=== PATIENT | male | born 1960 | race Caucasian/White ===

== ENCOUNTER 2018-03-25 14:11 | Inpatient (IN) | payer MEDICAID ==
[~2018-03-25] VITALS: Ht 175.3 cm; Wt 81.0 kg
[~2018-03-25 14:11] MED LIST: CEFAZOLIN 1 GM INJ ONE; LIDOCAINE 2% (SDV) 5 ML INJ ONE; PROPOFOL 200 MG INJ ONE; ROCURONIUM 50 MG INJ ONE; SUCCINYLCHOLINE CHLORIDE 100 MG/5 ML SYG IV ONE
[2018-03-25 14:31] VITALS: Ht 175.3 cm; Wt 81.0 kg
[2018-03-25] MEDS ORDERED: SOD CHLORIDE 0.9% 1,000 ML IV STA (16:11)
[2018-03-25] MEDS ORDERED: ONDANSETRON 4 MG INJ IV STA (16:11)
[2018-03-25] MEDS ORDERED: morphine 4 MG/ML VIAL IV STA (16:11)
--- NOTE | 2018-03-25 16:11 | ERD ---
ER Documentation Chief Complaint Chief Complaint LLQ PAIN WITH VOMTING X 3 DAYS, 11/19 HPI 57-year-old male with no significant past medical history presenting with epigastric pain that has worsened over the past few days, significantly worse today. He states that he has had epigastric pain for a few months now. His pain is currently radiating across the upper abdomen, rated at a 9 out of 10. Has associated nonbloody and nonbilious vomiting. He did notice black stools yesterday. No fevers or chills. No chest pain, shortness of breath, cough, dizziness. ROS All systems reviewed and are negative except as per history of present illness. Medications Home Meds No Active Prescriptions or Reported Meds Allergies Allergies: Coded Allergies: No Known Allergy (Unverified , 03/25/18) PMhx/Soc Medical and Surgical Hx: pt denies Medical Hx, pt denies Surgical Hx Hx Psychiatric Problems: No Hx Miscellaneous Medical Probl: No Hx Alcohol Use: Yes (rarely) Hx Substance Use: No Hx Tobacco Use: No Smoking Status: Never smoker FmHx mom had ulcers Physical Exam Vitals Vital Signs Date Temp Pulse Resp B/P (MAP) Pulse Ox O2 O2 Flow FiO2 Time Delivery Rate 03/25/18 99.0 101 16 117/82 95 Room Air 17:00 (94) 03/25/18 106 16 130/102 95 Room Air 16:00 (111) 03/25/18 96.9 110 24 159/102 97 14:31 (121) Physical Exam Const: In distress due to pain, nontoxic Head: Atraumatic Eyes: Normal Conjunctiva ENT: Normal External Ears, Nose and Mouth. Neck: Full range of motion. No meningismus. Resp: Clear to auscultation bilaterally Cardio: Tachycardic with regular rhythm, no murmurs Abd: Significant epigastric tenderness. Abdomen diffusely firm. Negative for lin's or mcburneys point tenderness. non distended. Guarding but no rebound. Normal bowel sounds Skin: No petechiae or rashes Back: No midline or flank tenderness Ext: No cyanosis, or edema Neur: Awake and alert Psych: Normal Mood and Affect Result Diagram: 03/26/18 0510 03/26/18 0510 Results 24 hrs Laboratory Tests Test 03/25/18 16:16 03/25/18 17:38 White Blood Count 12.4 10^3/ul Red Blood Count 5.86 10^6/ul Hemoglobin 17.8 g/dl Hematocrit 52.4 % Mean Corpuscular Volume 89.4 fl Mean Corpuscular Hemoglobin 30.4 pg Mean Corpuscular Hemoglobin Concent 34.0 g/dl Red Cell Distribution Width 11.9 % Platelet Count 435 10^3/UL Mean Platelet Volume 10.0 fl Immature Granulocytes % 0.300 % Neutrophils % 89.6 % Lymphocytes % 5.0 % Monocytes % 4.6 % Eosinophils % 0.0 % Basophils % 0.5 % Nucleated Red Blood Cells % 0.0 /100WBC Immature Granulocytes # 0.040 10^3/ul Neutrophils # 11.1 10^3/ul Lymphocytes # 0.6 10^3/ul Monocytes # 0.6 10^3/ul Eosinophils # 0.0 10^3/ul Basophils # 0.1 10^3/ul Nucleated Red Blood Cells # 0.0 10^3/ul Urine Color ARYA Urine Clarity SLIGHTLY CLOUDY Urine pH 5.0 Urine Specific [place] 1.030 Urine Ketones 1+ mg/dL Urine Nitrite NEGATIVE mg/dL Urine Bilirubin NEGATIVE mg/dL Urine Urobilinogen NEGATIVE mg/dL Urine Leukocyte Esterase NEGATIVE Kyra/ul Urine Microscopic RBC 2 /HPF Urine Microscopic WBC 2 /HPF Urine Squamous Epithelial Cells FEW /HPF Urine Mucus MANY /HPF Urine Hemoglobin NEGATIVE mg/dL Urine Glucose NEGATIVE mg/dL Urine Total Protein 1+ mg/dl Sodium Level 140 mmol/L Potassium Level 3.8 mmol/L Chloride Level 96 mmol/L Carbon Dioxide Level 27 mmol/L Anion Gap 17 Blood Urea Nitrogen 24 mg/dl Creatinine 1.71 mg/dl Est Glomerular Filtrat Rate mL/min 41 mL/min Glucose Level 177 mg/dl Calcium Level 9.6 mg/dl Total Bilirubin 0.7 mg/dl Direct Bilirubin 0.00 mg/dl Indirect Bilirubin 0.7 mg/dl Aspartate Amino Transf (AST/SGOT) 23 IU/L Alanine Aminotransferase (ALT/SGPT) 16 IU/L Alkaline Phosphatase 98 IU/L Troponin I < 0.012 ng/ml Total Protein 8.4 g/dl Albumin 4.6 g/dl Globulin 3.80 g/dl Albumin/Globulin Ratio 1.21 Lipase 63 U/L POC Venous Lactate 2.4 mmol/L Current Medications Medications Dose Sig/Sveta Start Time Status Last (Trade) Ordered Route PRN Stop Time Admin Dose Reason Admin Sodium 1,000 ml @ Q1H STAT 03/25/18 DC 03/25/18 Chloride 1,000 mls/hr IV 16:11 16:37 03/25/18 17:10 Morphine 4 mg ONCE STAT 03/25/18 DC 03/25/18 Sulfate IV 16:11 16:37 (morphine) 03/25/18 16:13 Ondansetron 4 mg ONCE STAT 03/25/18 DC 03/25/18 HCl (Zofran IV 16:11 16:37 Inj) 03/25/18 16:13 40 mg ONCE ONCE 03/25/18 DC 03/25/18 Pantoprazole IV 16:30 16:37 (Protonix 03/25/18 16:31 Iv) Sodium 1,290 ml BOLUS OVER 2 03/25/18 DC 03/25/18 Chloride HOURS STAT 17:12 18:14 (NS) IV* 03/25/18 17:16 Piperacillin 100 ml @ ONCE STAT 03/25/18 DC 03/25/18 Sod/ 200 mls/hr IVPB 17:12 18:12 Tazobactam 03/25/18 17:41 Sod 100 ml @ ONCE STAT 03/25/18 DC 03/25/18 Metronidazole 100 mls/hr IVPB 17:12 18:57 03/25/18 18:11 0.5 mg ONCE STAT 03/25/18 DC 03/25/18 Hydromorphone IV 17:23 18:13 HCl 03/25/18 17:25 (Dilaudid) Procedures/MDM EMERGENT LABS AND DIAGNOSTIC STUDIES: Lab Results above were reviewed and interpreted by me. CBC: Mild leukocytosis, concerning for infection CMP: Elevated BUN and creatinine, consistent with renal insufficiency. No evidence of electrolyte abnormality, hypoglycemia, liver failure, or biliary obstruction Lipase: no evidence of pancreatitis Troponin within normal limits, not indicative of cardiac ischemia Lactate elevated, consistent with tissue hypoperfusion or sepsis UA: no evidence of infection. Ketones noted 12-lead EKG was interpreted by Abraham Cuellar MD: Sinus tachycardia at 102 bpm Normal axis Normal intervals No acute ST or T wave changes suggestive of acute ischemia or STEMI. EKG #2: Rate/Rhythm: Sinus tachycardia at 112 bpm QRS, ST, T-waves: No changes consistent w/ acute ischemia Impression: No evidence of ischemia or arrhythmia Radiology Results as interpreted by Radiology below were reviewed by Paddy Cuellar MD: Chest x-ray shows no acute intrathoracic abnormalities, but free air was noted under the diaphragm IMPRESSION: 1. Extensive pneumoperitoneum seen in the upper abdomen. The source of pneumoperitoneum is unclear, most likely from stomach or proximal small bowel. 2. Moderate to severely distended stomach with air fluid level. Nonspecific diffuse circumferential thickening of the antrum and proximal duodenum. 3. Circumferential wall thickening of the proximal loops of small bowel with adjacent fat stranding suggestive of enteritis. 4. Small to moderate perihepatic ascites extending to the pelvis. Initial Nursing notes reviewed. Previous Medical Records requested via the Electronic Health Record. EMERGENCY DEPARTMENT COURSE / MEDICAL DECISION MAKING: Patient presents with abdominal pain. Vitals were notable for tachycardia and tachypnea upon arrival. However there was no clear source of infection. Initially I suspected possible peptic ulcer, gastritis versus pancreatitis. I have a low suspicion for cholecystitis. Workup showed evidence of pneumoperitoneum, with concern for proximal bowel perforation. When this was recognized, septic workup was initiated, broad-spectrum antibiotics given and full bolus of IV fluids given. Patient was treated with Protonix IV as well as antibiotics. I spoke with the general surgeon on-call, Dr. Koo, who plans on taking the patient to surgery. As patient's infectious symptoms have not stabilized and the patient is at risk of rapid decompensation. The patient will be admitted for careful hydration, antibiotic therapy, and infectious source control. Time of Sepsis Recognition: 1712 Severe Sepsis Assessment: Infectious Source: Peritonitis End organ damage indicated by: Lactate > 2.0 mmol/L Severe Sepsis Managment: Blood Cultures X 2 before broad spectrum antibiotics initiated within 3 hours of recognition. 30 ml/kg NS bolus Completed Initial Lactate: 2.4 Repeat Lactate 3.1 Critical Care: Time: 45 minutes Treatments/Evaluations: Emergent fluid management, while maintaining close respiratory support. Immediate broad spectrum antibiotic therapy. Simultaneous assessment for possible sources in order to direct therapy. Consideration for invasive and chemical support to prevent respiratory or cardiac collapse. Septic Shock Assessment (1 hour post 30 ml/kg fluid bolus): Hypotension (SBP < 90 or 40 mmHg drop, MAP < 65): No Lactic acid > 4.0 No Accepting Care Team: Current data and ongoing care discussed. Time: Time of admission Primary Provider: Dr. Bazzi Consulting: Dr. Koo, general surgery Outstanding Data: Blood and urine cultures Departure Diagnosis: Primary Impression: Pneumoperitoneum Additional Impressions: Severe sepsis Acute kidney failure Acute renal failure type: unspecified Qualified Codes: N17.9 - Acute kidney failure, unspecified Condition: Critical LESLEE CUELLAR MD Mar 25, 2018 16:11
[2018-03-25] MEDS ORDERED: PANTOPRAZOLE 40 MG INJ IV ONE (16:30)
[2018-03-25] MEDS ORDERED: SODIUM CHLORIDE 0.9% 1L BAG IV* STA (17:12)
[2018-03-25] MEDS ORDERED: metroNIDAZOLE 500 MG/NS (PMX) 100 ML IVPB STA (17:12)
[2018-03-25] MEDS ORDERED: PIPER-TAZO 3.375 GM IV (PMX) 100 ML IVPB STA (17:12)
[2018-03-25] MEDS ORDERED: HYDROmorphONE 0.5 MG/0.5 ML SYG IV STA (17:23)
[2018-03-25] MEDS ORDERED: ONDANSETRON 4 MG INJ IV PRN ×4 (19:30→23:00)
[2018-03-25] MEDS ORDERED: LIDOCAINE 2% VISC 15 ML CUP TOP ONE (19:30)
[2018-03-25] MEDS ORDERED: ACETAMINOPHEN 325 MG TAB PO PRN (19:30)
[2018-03-25] MEDS ORDERED: BUPIVACAINE 0.25% (MPF) 30 ML INJ ONE (19:35)
[2018-03-25] MEDS ORDERED: NACL 0.9% 3 ML SYG IV SCH (20:00)
--- NOTE | 2018-03-25 20:04 | PREAC ---
Date/Time of Note Date/Time of Note DATE: 03/25/18 TIME: 20:03 Anesthesia Eval and Record Evaluation Time Pre-Procedure Interview DATE: 03/25/18 TIME: 20:03 Age 57 Sex male NPO: 8 hrs Preoperative diagnosis pneumoperitonium Planned procedure exploratory laparoscopy Past Medical History Past Medical History: None (Pt does not see a physician) Surgery & Anesthesia Issues No known issue Meds Anticoagulation: No Beta Isha within 24 hr: No Reason Beta Isha not given: Pt. not on B-Isha No Active Prescriptions or Reported Meds Current Medications Ondansetron HCl (Zofran Inj) 4 mg ER BRIDGE PRN IV NAUSEA/VOMITING; Start 03/25/18 at 19:30; Stop 03/26/18 at 19:29 Acetaminophen (Tylenol Tab) 650 mg ER BRIDGE PRN PO .MILD PAIN 1-3 OR TEMP; Start 03/25/18 at 19:30; Stop 03/26/18 at 19:29 Pantoprazole 80 mg/Sodium Chloride 100 ml @ 400 mls/hr ONCE ONCE IVPB ; Start 03/25/18 at 20:00; Stop 03/25/18 at 20:14; Status UNV Pantoprazole 80 mg/Sodium Chloride 100 ml @ 10 mls/hr Q10H IV ; Start 03/25/18 at 20:00; Status UNV Piperacillin Sod/ Tazobactam Sod 100 ml @ 200 mls/hr Q6 IVPB ; Start 03/26/18 at 00:00; Status UNV Sodium Chloride 1,000 ml @ 100 mls/hr Q10H IV ; Start 03/25/18 at 19:56; Status UNV IV Flush (NS 3 ml) 3 ml PER PROTOCOL IV ; Start 03/25/18 at 20:00; Status UNV Ondansetron HCl (Zofran Inj) 4 mg Q6H PRN IV NAUSEA/VOMITING; Start 03/25/18 at 20:00; Status UNV Morphine Sulfate (morphine) 2 mg Q4H PRN IV .PAIN 7-10; Start 03/25/18 at 20:00; Status UNV Meds reviewed: Yes Allergies Coded Allergies: No Known Allergy (Unverified , 03/25/18) Allergies Reviewed: Yes Labs/Studies Labs Reviewed: Reviewed by anesthesiologist Result Diagram: 03/25/18 1616 03/25/18 1616 Laboratory Tests 03/25/18 16:16 test: Negative Studies: ECG Pre-procedure Exam Last vitals Vital Signs Date Temp Pulse Resp B/P (MAP) Pulse Ox O2 O2 Flow FiO2 Time Delivery Rate 03/25/18 110 22 115/82 95 Room Air 19:56 (93) 03/25/18 99.0 17:00 Airway: Adequate mouth opening, Adequate thyromental dist Mallampati: Mallampati II Teeth: Normal Lung: Normal Heart: Normal ASA Physical Status ASA physical status: 3 Emergency: E Planned Anesthetic General/MAC: ETT Nerve block: TAP (bilateral) Pre-operative Attestations Prior to commencing anesthesia and surgery, the patient was re-evaluated, there was verification of: *The patient's identity *The results of appropriate recent lab work and preoperative vital signs *The above evaluation not changing prior to induction *Anesthetic plan, risk benefits, alternative and complications discussed with patient/family; questions answered; patient/family understands, accepts and wishes to proceed. ANUJ SOTO Mar 25, 2018 20:04
--- NOTE | 2018-03-25 20:09 | CONS ---
Consultation Date/Type/Reason Admit Date/Time Date of Consultation: Mar 25, 2018 Type of Consult surgical consult Reason for Consultation abdominal pain , perforated viscus Date/Time of Note DATE: 03/25/18 TIME: 20:06 Hx of Present Illness Patient 57-year-old male presenting to the emergency room with abdominal pain which increase acutely today. Patient states that he has had upper abdominal pain for the past few months he has a family history of ulcers in his mother side. He denies any past medical history denies any past surgical history. Patient noted epigastric pain and vomiting and some dark stool. Presentation to the emergency room he was noted to have severe upper abdominal pain and CAT scan with pneumoperitoneum with fluid without evidence of diverticulitis possible perforated ulcer. Constitutional: no complaints, improved, chills, diaphoresis, disoriented, febrile, poor po, requiring IVF, requiring O2, other (pain) Gastrointestinal: pain Past Medical History Medical History: no pertinent history Home Meds No Active Prescriptions or Reported Meds Medications Current Medications Ondansetron HCl (Zofran Inj) 4 mg ER BRIDGE PRN IV NAUSEA/VOMITING; Start 03/25/18 at 19:30; Stop 03/26/18 at 19:29 Acetaminophen (Tylenol Tab) 650 mg ER BRIDGE PRN PO .MILD PAIN 1-3 OR TEMP; Start 03/25/18 at 19:30; Stop 03/26/18 at 19:29 Pantoprazole 80 mg/Sodium Chloride 100 ml @ 400 mls/hr ONCE ONCE IVPB ; Start 03/25/18 at 20:00; Stop 03/25/18 at 20:14; Status UNV Pantoprazole 80 mg/Sodium Chloride 100 ml @ 10 mls/hr Q10H IV ; Start 03/25/18 at 20:00; Status UNV Piperacillin Sod/ Tazobactam Sod 100 ml @ 200 mls/hr Q6 IVPB ; Start 03/26/18 at 00:00; Status UNV Sodium Chloride 1,000 ml @ 100 mls/hr Q10H IV ; Start 03/25/18 at 19:56; Status UNV IV Flush (NS 3 ml) 3 ml PER PROTOCOL IV ; Start 03/25/18 at 20:00; Status UNV Ondansetron HCl (Zofran Inj) 4 mg Q6H PRN IV NAUSEA/VOMITING; Start 03/25/18 at 20:00; Status UNV Morphine Sulfate (morphine) 2 mg Q4H PRN IV .PAIN 7-10; Start 03/25/18 at 20:00; Status UNV Allergies: Coded Allergies: No Known Allergy (Unverified , 03/25/18) Social History Smoking Status: Never smoker Exam/Review of Systems Exam Vitals Vital Signs Date Temp Pulse Resp B/P (MAP) Pulse Ox O2 O2 Flow FiO2 Time Delivery Rate 03/25/18 110 22 115/82 95 Room Air 19:56 (93) 03/25/18 99.0 17:00 Gastrointestinal: tender Results Result Diagram: 03/25/18 1616 03/25/18 1616 Results 24hrs Laboratory Tests Test 03/25/18 16:16 03/25/18 17:38 White Blood Count 12.4 H Red Blood Count 5.86 Hemoglobin 17.8 Hematocrit 52.4 H Mean Corpuscular Volume 89.4 Mean Corpuscular Hemoglobin 30.4 Mean Corpuscular Hemoglobin Concent 34.0 Red Cell Distribution Width 11.9 Platelet Count 435 H Mean Platelet Volume 10.0 Immature Granulocytes % 0.300 Neutrophils % 89.6 H Lymphocytes % 5.0 L Monocytes % 4.6 Eosinophils % 0.0 Basophils % 0.5 Nucleated Red Blood Cells % 0.0 Immature Granulocytes # 0.040 H Neutrophils # 11.1 H Lymphocytes # 0.6 L Monocytes # 0.6 Eosinophils # 0.0 Basophils # 0.1 Nucleated Red Blood Cells # 0.0 Urine Color ARYA Urine Clarity SLIGHTLY CLOUDY A Urine pH 5.0 Urine Specific [place] 1.030 Urine Ketones 1+ H Urine Nitrite NEGATIVE Urine Bilirubin NEGATIVE Urine Urobilinogen NEGATIVE Urine Leukocyte Esterase NEGATIVE Urine Microscopic RBC 2 Urine Microscopic WBC 2 Urine Squamous Epithelial Cells FEW Urine Mucus MANY A Urine Hemoglobin NEGATIVE Urine Glucose NEGATIVE Urine Total Protein 1+ H Sodium Level 140 Potassium Level 3.8 Chloride Level 96 L Carbon Dioxide Level 27 Anion Gap 17 H Blood Urea Nitrogen 24 H Creatinine 1.71 H Est Glomerular Filtrat Rate mL/min 41 L Glucose Level 177 Calcium Level 9.6 Total Bilirubin 0.7 Direct Bilirubin 0.00 Indirect Bilirubin 0.7 Aspartate Amino Transf (AST/SGOT) 23 Alanine Aminotransferase (ALT/SGPT) 16 Alkaline Phosphatase 98 Total Protein 8.4 H Albumin 4.6 Globulin 3.80 H Albumin/Globulin Ratio 1.21 Lipase 63 POC Venous Lactate 2.4 *H Medications Medication Current Medications Ondansetron HCl (Zofran Inj) 4 mg ER BRIDGE PRN IV NAUSEA/VOMITING; Start 03/25/18 at 19:30; Stop 03/26/18 at 19:29 Acetaminophen (Tylenol Tab) 650 mg ER BRIDGE PRN PO .MILD PAIN 1-3 OR TEMP; Start 03/25/18 at 19:30; Stop 03/26/18 at 19:29 Pantoprazole 80 mg/Sodium Chloride 100 ml @ 400 mls/hr ONCE ONCE IVPB ; Start 03/25/18 at 20:00; Stop 03/25/18 at 20:14; Status UNV Pantoprazole 80 mg/Sodium Chloride 100 ml @ 10 mls/hr Q10H IV ; Start 03/25/18 at 20:00; Status UNV Piperacillin Sod/ Tazobactam Sod 100 ml @ 200 mls/hr Q6 IVPB ; Start 03/26/18 at 00:00; Status UNV Sodium Chloride 1,000 ml @ 100 mls/hr Q10H IV ; Start 03/25/18 at 19:56; Status UNV IV Flush (NS 3 ml) 3 ml PER PROTOCOL IV ; Start 03/25/18 at 20:00; Status UNV Ondansetron HCl (Zofran Inj) 4 mg Q6H PRN IV NAUSEA/VOMITING; Start 03/25/18 at 20:00; Status UNV Morphine Sulfate (morphine) 2 mg Q4H PRN IV .PAIN 7-10; Start 03/25/18 at 20:00; Status UNV KINGS PIERRE MD Mar 25, 2018 20:09
[2018-03-25] MEDS ORDERED: ROPIVACAINE 0.5 % 30 ML VIAL ONE (20:21)
[2018-03-25] MEDS ORDERED: FENTAnyl 50 MCG/ML VIAL ONE (20:21)
[2018-03-25] MEDS ORDERED: FENTAnyl 50 MCG/ML VIAL IV PRN ×3 (20:30)
[2018-03-25] MEDS ORDERED: MEPERIDINE 25 MG INJ IV PRN (20:30)
[2018-03-25] MEDS ORDERED: HYDROmorphONE 1 MG/5 ML IV SYRINGE IV PRN ×3 (20:30)
[2018-03-25] MEDS ORDERED: METOCLOPRAMIDE 10 MG INJ IV PRN (20:30)
[2018-03-25] MEDS ORDERED: ALBUTEROL 0.083% (NEB) 2.5 MG/3 ML AMP HHN PRN (20:30)
[2018-03-25] MEDS ORDERED: DIPHENHYDRAMINE 50 MG INJ IV PRN ×2 (20:30→23:00)
[2018-03-25] MEDS ORDERED: PHENYLephrine (100 MCG/ML) 5ML SYG ONE ×2 (20:45→20:50)
--- NOTE | 2018-03-25 20:45 | HP ---
Date/Time of Note Date/Time of Note DATE: 03/25/18 TIME: 20:45 Assessment/Plan VTE Prophylaxis Pharmacological prophylaxis: other Lines/Catheters IV Catheter Type (from Nrs): Saline Lock Assessment/Plan Hospital Course Objective Physical exam General: Patient is laying in bed and answers questions appropriately Mentation: Patient is alert and oriented 4, Head: Normocephalic atraumatic Eyes: EOMI, pupils reactive to light Neck: Supple, nontender, midline Respiratory: Clear to auscultation bilaterally Cardiovascular: regular rate, no obvious murmurs Gastrointestinal: Tender to palpation, bowel sounds heard. Neurological: Moves all extremities spontaneously Skin: No new skin lesions Assessment and plan Perforated viscus with abdominal pain -Per CT, likely stomach or proximal small bowel -General surgeon on board, going into surgery as we speak -Prophylactic IV antibiotic -Normal saline Melena -IV Protonix PPI drip -Very likely secondary to above perforated viscus -Day team to consult GI if needed Acute kidney injury versus chronic kidney disease -Patient does not follow-up with a physician on a normal basis so unknown baseline -NS -Day team to consult nephrology if needed Nausea vomiting -Secondary to above perforated viscus -Treat with NG tube and Zofran -Surgical repair today of viscus Disposition -Pending surgery, continue PPI drip for now and IV antibiotics for now. Result Diagram: 03/25/18 1616 03/25/18 1616 Results 24hrs Laboratory Tests Test 03/25/18 16:16 03/25/18 17:38 White Blood Count 12.4 H Red Blood Count 5.86 Hemoglobin 17.8 Hematocrit 52.4 H Mean Corpuscular Volume 89.4 Mean Corpuscular Hemoglobin 30.4 Mean Corpuscular Hemoglobin Concent 34.0 Red Cell Distribution Width 11.9 Platelet Count 435 H Mean Platelet Volume 10.0 Immature Granulocytes % 0.300 Neutrophils % 89.6 H Lymphocytes % 5.0 L Monocytes % 4.6 Eosinophils % 0.0 Basophils % 0.5 Nucleated Red Blood Cells % 0.0 Immature Granulocytes # 0.040 H Neutrophils # 11.1 H Lymphocytes # 0.6 L Monocytes # 0.6 Eosinophils # 0.0 Basophils # 0.1 Nucleated Red Blood Cells # 0.0 Urine Color ARYA Urine Clarity SLIGHTLY CLOUDY A Urine pH 5.0 Urine Specific [place] 1.030 Urine Ketones 1+ H Urine Nitrite NEGATIVE Urine Bilirubin NEGATIVE Urine Urobilinogen NEGATIVE Urine Leukocyte Esterase NEGATIVE Urine Microscopic RBC 2 Urine Microscopic WBC 2 Urine Squamous Epithelial Cells FEW Urine Mucus MANY A Urine Hemoglobin NEGATIVE Urine Glucose NEGATIVE Urine Total Protein 1+ H Sodium Level 140 Potassium Level 3.8 Chloride Level 96 L Carbon Dioxide Level 27 Anion Gap 17 H Blood Urea Nitrogen 24 H Creatinine 1.71 H Est Glomerular Filtrat Rate mL/min 41 L Glucose Level 177 Calcium Level 9.6 Total Bilirubin 0.7 Direct Bilirubin 0.00 Indirect Bilirubin 0.7 Aspartate Amino Transf (AST/SGOT) 23 Alanine Aminotransferase (ALT/SGPT) 16 Alkaline Phosphatase 98 Troponin I < 0.012 Total Protein 8.4 H Albumin 4.6 Globulin 3.80 H Albumin/Globulin Ratio 1.21 Lipase 63 POC Venous Lactate 2.4 *H HPI/ROS Admit Date/Time Admit Date/Time Hx of Present Illness Patient is a male with no significant past medical history due to not f ollowing up with a physician in a very long time who presents to [facility] for abdominal pain. Patient states that he had on and off abdominal pain for quite some time however the most severe abdominal pain has been going on for the past 2 days in the epigastric region and he is also complaining of black stool for the past day. Patient currently has abdominal pain but has subsided with pain medication. Patient now has an NG tube but has also been complaining of nausea and vomiting on and off but with no hematemesis. Patient denies chest pain, shortness of breath, headache, leg pain, chest pain PMH/Family/Social Past Medical History Medical History: no pertinent history Medications Current Medications Ondansetron HCl (Zofran Inj) 4 mg ER BRIDGE PRN IV NAUSEA/VOMITING; Start 03/25 at 19:30; Stop 03/26/18 at 19:29 Acetaminophen (Tylenol Tab) 650 mg ER BRIDGE PRN PO .MILD PAIN 1-3 OR TEMP; Start 03/25/18 at 19:30; Stop 03/26/18 at 19:29 Pantoprazole 80 mg/Sodium Chloride 100 ml @ 400 mls/hr ONCE ONCE IVPB ; Start 03/25/18 at 20:00; Stop 03/25/18 at 20:14; Status UNV Pantoprazole 80 mg/Sodium Chloride 100 ml @ 10 mls/hr Q10H IV ; Start 03/25/18 at 20:00; Status UNV Piperacillin Sod/ Tazobactam Sod 100 ml @ 200 mls/hr Q6 IVPB ; Start 03/26/18 at 00:00 Sodium Chloride 1,000 ml @ 100 mls/hr Q10H IV ; Start 03/25/18 at 19:56 IV Flush (NS 3 ml) 3 ml PER PROTOCOL IV ; Start 03/25/18 at 20:00 Ondansetron HCl (Zofran Inj) 4 mg Q6H PRN IV NAUSEA/VOMITING; Start 03/25/18 at 20:00 Morphine Sulfate (morphine) 2 mg Q4H PRN IV .PAIN 7-10; Start 03/25/18 at 20:00 Hydromorphone HCl (Dilaudid) 0.2 mg PACU PRN IV MILD PAIN 1-3; Start 03/25/18 at 20:30; Stop 03/26/18 at 03:00 Hydromorphone HCl (Dilaudid) 0.4 mg PACU PRN IV MOD PAIN 4-6; Start 03/25/18 at 20:30; Stop 03/26/18 at 03:00 Hydromorphone HCl (Dilaudid) 0.6 mg PACU PRN IV SEVERE PAIN 7-10; Start 03/25/18 at 20:30; Stop 03/26/18 at 03:00 Fentanyl (Sublimaze) 25 mcg PACU ORDER PRN IV MILD PAIN 1-3; Start 03/25/18 at 20:30; Stop 03/26/18 at 03:00 Fentanyl (Sublimaze) 50 mcg PACU ORDER PRN IV MOD PAIN 4-6; Start 03/25/18 at 20:30; Stop 03/26/18 at 03:00 Fentanyl (Sublimaze) 75 mcg PACU ORDER PRN IV SEVERE PAIN 7-10; Start 03/25/18 at 20:30; Stop 03/26/18 at 03:00 Ondansetron HCl (Zofran Inj) 4 mg PACU ORDER PRN IV NAUSEA/VOMITING; Start 03/25/18 at 20:30 Metoclopramide HCl (Reglan) 10 mg PACU ORDER PRN IV NAUSEA/VOMITING; Start 03/25/18 at 20:30; Stop 03/26/18 at 03:00 Albuterol (Proventil 0.083% (Neb)) 2.5 mg PACU ORDER PRN HHN .WHEEZING; Start 03/25/18 at 20:30; Stop 03/26/18 at 03:00 Meperidine HCl (Demerol) 25 mg PACU ORDER PRN IV .RIGORS; Start 03/25/18 at 20:30; Stop 03/26/18 at 03:00 Diphenhydramine HCl (Benadryl) 25 mg PACU ORDER PRN IV .PRURITUS; Start 03/25/18 at 20:30; Stop 03/26/18 at 03:00 Coded Allergies: No Known Allergy (Unverified , 03/25/18) Social History Smoking Status: Never smoker Exam/Review of Systems Vital Signs Vitals Vital Signs Date Temp Pulse Resp B/P (MAP) Pulse Ox O2 O2 Flow FiO2 Time Delivery Rate 03/25/18 110 22 115/82 95 Room Air 19:56 (93) 03/25/18 99.0 17:00 TARA DUGGAN Mar 25, 2018 20:45
[2018-03-25] MEDS ORDERED: VASOPRESSIN 20 UNITS INJ ONE (20:49)
[2018-03-25] MEDS ORDERED: MIDAZOLAM 1 MG/ML 2 ML INJ ONE (20:56)
[2018-03-25] MEDS ORDERED: PANTOPRAZOLE IV 80 MG in SOD CHLORIDE 0.9% 100 ML IVPB ONE (21:00)
[2018-03-25] MEDS ORDERED: D5W-0.45 NACL + KCL 20 MEQ 1,000 ML IV SCH (22:57)
[2018-03-25] MEDS ORDERED: HYDROmorphONE 0.5 MG/0.5 ML SYG IV PRN (23:00)
[2018-03-25 23:15] VITALS: BP 167/100; PULSE 94; RESP 15
[2018-03-25 23:30] VITALS: BP 175/105; PULSE 100; RESP 15
[2018-03-25] MEDS ORDERED: PROPOFOL 100 ML IV ONE (23:30)
[2018-03-25 23:45] VITALS: BP 182/118; PULSE 96; RESP 20
[2018-03-26] VITALS (41 sets, daily range): BP systolic 84–173; BP diastolic 60–120; PULSE 87–104; RESP 14–32
[2018-03-26] MEDS ORDERED: PIPER-TAZO 3.375 GM IV (PMX) 100 ML IVPB SCH
[2018-03-26] MEDS: SOD CHLORIDE 0.9% 1,000 ML IV SCH ×3 (00:07→15:45)
--- NOTE | 2018-03-26 00:14 | OPR ---
Date/Time of Note Date/Time of Note DATE: 03/26/18 TIME: 00:13 Operative Report Procedure Date: Mar 25, 2018 Preoperative Diagnosis Pneumoperitoneum suspect perforated ulcer Postoperative Diagnosis Perforated peptic ulcer Operation/Procedure Performed Scopic repair of perforated peptic ulcer Surgeon Kings Koo see signature line [place] Gatherer None Anesthesia Type: general Anesthesiologist: ANUJ SOTO Estimated Blood Loss: minimal Transfusion none Specimen None Grafts/Implants none Complications none Pt Condition Post Procedure: stable Disposition: other (ICU) Indications Patient presented with severe abdominal pain 3 days duration on CAT scan noted to have significant amount of pneumoperitoneum with suggestion of possible perforation in the upper abdomen possible peptic ulcer. I saw patient in consultation and felt that the patient likely had a perforated peptic ulcer I recommended urgent exploration by laparoscopy although possibility of colostomy possibly of other findings if perforation else from the GI tract would necessitate an patient agreed to proceed. Procedure Description Patient brought to the operating placed supine position general she is administered with intubation patient prepped draped in sterile fashion timeout was completed in standard. Patel catheter was inserted. Varies needle was used in the left upper quadrant Verduzco's point insufflation delivered to maintain pneumoperitoneum at 15 mmHg throughout the procedure course of Marcaine was used to infiltrate all trocar sites a small stab incision made to the left periumbilical space and a 5 mm trocar was inserted with a 35 degree laparoscope the Veress needle was removed and 2 additional trochars in the right lateral abdomen. Inspection of the abdomen showed gross peritonitis with significant amount of intraperitoneal fluid which was likely gastric content. Copious irrigation was used to dilute this and then aspirated until all 4 quadrants showed clear of any gross contamination. The maximum point of information appeared to be in the prepyloric area just underlying the falciform ligament there was contamination along the abutting portion of the liver. 2 interrupted 2-0 Vicryl and 3-0 silk sutures were placed on either side of the perforation and tied loosely with long tails. A tongue of omentum was then easily brought up over this and this was tied down. Additional larger piece of omentum was freely mobile and brought over this and this was secured in place by a suture by the falciform ligament. Final inspection of all 4 quadrants showed no other gross contamination there was additional irrigation used and aspirated until clear. Under direct visualization after the insufflation was halted all trochars were removed. The skin incisions closed with 4-0 Monocryl and Dermabond for dressing. Patient was kept intubated because of feeling that there was still residual content in the stomach which cannot be aspirated through the NG tube. [place] safest to keep patient intubated overnight. Counts were correct x2. KINGS OKO MD Mar 26, 2018 00:14
[2018-03-26] MEDS: PIPER-TAZO 3.375 GM IV (PMX) 100 ML IVPB SCH ×4 (00:20→18:12)
[2018-03-26] MEDS: PANTOPRAZOLE IV 80 MG in SOD CHLORIDE 0.9% 100 ML IV SCH ×4 (01:37→22:31)
[2018-03-26] MEDS: PROPOFOL 100 ML IV SCH ×3 (03:04→14:30)
[2018-03-26] MEDS: morphine 2 MG INJ IV PRN ×2 (04:01→09:53)
[2018-03-26] MEDS: FAMOTIDINE 20 MG INJ IV SCH ×2 (08:29→20:44)
--- NOTE | 2018-03-26 08:51 | PAC ---
Date/Time of Note Date/Time of Note DATE: 03/26/18 TIME: 08:50 Post-Anesthesia Notes Post-Anesthesia Note Last documented vital signs Vital Signs Date Temp Pulse Resp B/P (MAP) Pulse Ox O2 O2 Flow FiO2 Time Delivery Rate 03/26/18 99.3 96 21 117/83 100 Mechanical 08:00 (94) Ventilator 03/26/18 60 04:02 Activity: WNL Respiratory function: WNL Cardiovascular function: WNL Mental status: Baseline Pain reasonably controlled: Yes Hydration appropriate: Yes Nausea/Vomiting absent: Yes ANUJ SOTO Mar 26, 2018 08:51
--- NOTE | 2018-03-26 09:09 | PN ---
Date/Time of Note Date/Time of Note DATE: 03/26/18 TIME: 09:01 Assessment/Plan VTE Prophylaxis SCD applied (from Nsg): Yes SCD contraindicated: other Pharmacological prophylaxis: NA/contraindicated Pharm contraindication: bleeding Lines/Catheters IV Catheter Type (from Nrsg): Peripheral IV Urinary Cath still in place: Yes Reason Cath still needed: urinary retention Assessment/Plan Hospital Course S: Patient had surgical repair of perforated viscus early this morning. Presently intubated, NG tube in place. Does open eyes, no acute events overnight. Objective VS - see below Physical exam General: Lying in bed, intubated, but opens eyes, NG tube in place Head: Normocephalic atraumatic Eyes: EOMI, pupils reactive to light Neck: Supple, nontender, midline Respiratory: Clear to auscultation bilaterally Cardiovascular: regular rate, no obvious murmurs Gastrointestinal: Nondistended, soft, surgical incisions covered in bandage. Neurological: No apparent focal deficit Date/Time of Note Date/Time of Note DATE: 03/26/18 TIME: 00:13 Operative Report Procedure Date: Mar 25, 2018 Preoperative Diagnosis Pneumoperitoneum suspect perforated ulcer Postoperative Diagnosis Perforated peptic ulcer Operation/Procedure Performed Scopic repair of perforated peptic ulcer Assessment and plan: 57-year-old male who presents with: # Perforated viscus with abdominal pain-Per CT, likely stomach or proximal small bowel. Again status post surgical repair early this morning. Now intubated, NG tube in place. No signs of any upper or lower GI bleeding presently. -Continue PPI IV drip for now, and IV fluids -Follow-up postop recommendations, and continue prophylactic IV antibiotic -Follow-up pulmonary recommendations regarding when to extubate and event management # Melena-this was noted on admission, very likely secondary to above perforated viscus. None presently. -For now continue IV Protonix PPI drip -Consider consult GI if needed Acute kidney injury versus chronic kidney disease-improved now, has been on IV fluids since admission per patient does not follow-up with a physician on a normal basis so unknown baseline -Continue NS -Monitor, consult nephrology if needed Nausea vomiting-Secondary to above perforated viscus -For now continue to treat with NG tube and Zofran Disposition - continue PPI drip for now and IV antibiotics for now. Critical care time spent on patient care today equals 50 minutes. Result Diagram: 03/26/18 0510 03/26/18 0510 Results 24hrs Laboratory Tests Test 03/25/18 16:16 03/25/18 17:38 03/26/18 01:02 03/26/18 01:24 White Blood 12.4 H Count Red Blood Count 5.86 Hemoglobin 17.8 Hematocrit 52.4 H Mean 89.4 Corpuscular Volume Mean 30.4 Corpuscular Hemoglobin Mean 34.0 Corpuscular Hemoglobin Conc ent Red Cell 11.9 Distribution Width Platelet Count 435 H Mean Platelet 10.0 Volume Immature 0.300 Granulocytes % Neutrophils % 89.6 H Lymphocytes % 5.0 L Monocytes % 4.6 Eosinophils % 0.0 Basophils % 0.5 Nucleated Red 0.0 Blood Cells % Immature 0.040 H Granulocytes # Neutrophils # 11.1 H Lymphocytes # 0.6 L Monocytes # 0.6 Eosinophils # 0.0 Basophils # 0.1 Nucleated Red 0.0 Blood Cells # Urine Color ARYA Urine Clarity SLIGHTLY CLOUDY A Urine pH 5.0 Urine Specific 1.030 [place] Urine Ketones 1+ H Urine Nitrite NEGATIVE Urine Bilirubin NEGATIVE Urine NEGATIVE Urobilinogen Urine Leukocyte NEGATIVE Esterase Urine 2 Microscopic RBC Urine 2 Microscopic WBC Urine Squamous FEW Epithelial Cell s Urine Mucus MANY A Urine NEGATIVE Hemoglobin Urine Glucose NEGATIVE Urine Total 1+ H Protein Sodium Level 140 Potassium Level 3.8 Chloride Level 96 L Carbon Dioxide 27 Level Anion Gap 17 H Blood Urea 24 H Nitrogen Creatinine 1.71 H Est Glomerular 41 L Filtrat Rate mL/min Glucose Level 177 Calcium Level 9.6 Total Bilirubin 0.7 Direct 0.00 Bilirubin Indirect 0.7 Bilirubin Aspartate Amino 23 Transf (AST/SGO T) Alanine 16 Aminotransferas e (ALT/SGPT) Alkaline 98 Phosphatase Troponin I < 0.012 Total Protein 8.4 H Albumin 4.6 Globulin 3.80 H Albumin/Globuli 1.21 n Ratio Lipase 63 POC Venous 2.4 *H Lactate Lactic Acid 3.1 *H Level Blood Gas Blood Specimen arterial Source Arterial Blood 03/26/2018 1:10 Date Drawn :09 AM Arterial Blood 7.298 *L pH (Temp corrected ) Arterial Blood 41.5 pCO2 (Temp correct) Arterial Blood 348.9 H pO2 (Temp corrected ) Arterial Blood 19.9 L HCO3 Arterial Blood -6.2 L Base Excess Arterial Blood 99.5 H Oxygen Saturati on Asif Test N/A Arterial Blood Right Radial Gas Puncture Site Arterial 0.3 Blood Carboxyhe moglobin Arterial Blood 0.6 Methemoglobin Blood Gas A-a 322.6 H O2 Differential Oxyhemoglobin 98.6 Percent Blood Gas 37.0 Temperature Blood Gas 14.0 Respiration Rate Blood Gas 21 Actual Respiration Rat e Blood Gas VENT - AC Modality FiO2 100.0 Blood Gas Tidal 500.0 Volume Blood Gas Low 5.0 PEEP Setting Blood Gas Abner SALCEDO Critical Value Read Back Blood Gas S.H. Notified Whom Blood Gas 03/26/2018 1:30 Notified Time :19 AM Test 03/26/18 05:10 03/26/18 07:30 White Blood 14.3 H Count Red Blood Count 4.90 Hemoglobin 14.6 Hematocrit 43.7 Mean 89.2 Corpuscular Volume Mean 29.8 Corpuscular Hemoglobin Mean 33.4 Corpuscular Hemoglobin Conc ent Red Cell 12.6 Distribution Width Platelet Count 298 # Mean Platelet 10.0 Volume Immature 0.300 Granulocytes % Neutrophils % Segmented 41 Neutrophils % (Manual) Band 49 H Neutrophils % (Manual) Lymphocytes % Lymphocytes % 5 L (Manual) Monocytes % Monocytes % 3 (Manual) Eosinophils % Basophils % Metamyelocytes 1 H % (manual) Promyelocytes % 1 H (Manual) Nucleated Red 0.0 Blood Cells % Immature 0.050 H Granulocytes # Neutrophils # Neutrophils # 6.9 (Manual) Band 7.0 H Neutrophils # Lymphocytes 0.7 L (Manual) Lymphocytes # Monocytes # Monocytes # 0.4 (Manual) Eosinophils # Basophils # Metamyelocytes 0.1 H # Promyelocytes # 0.1 H Nucleated Red Blood Cells # Platelet NORMAL Estimate Polychromasia 1+ Poikilocytosis 2+ Spherocytes 1+ Sodium Level 139 Potassium Level 4.5 Chloride Level 106 # Carbon Dioxide 22 Level Anion Gap 11 Blood Urea 22 H Nitrogen Creatinine 1.17 Est Glomerular > 60 Filtrat Rate mL/min Glucose Level 124 # Hemoglobin A1c 5.5 Calcium Level 8.3 L Magnesium Level 1.6 L Total Bilirubin 0.8 Direct 0.00 Bilirubin Indirect 0.8 Bilirubin Aspartate Amino 19 Transf (AST/SGO T) Alanine 18 Aminotransferas e (ALT/SGPT) Alkaline 54 Phosphatase Total Protein 5.7 #L Albumin 2.9 #L Globulin 2.80 Albumin/Globuli 1.03 n Ratio Triglycerides 32 Level Cholesterol 111 Level LDL 65 Cholesterol, Calculated HDL Cholesterol 40 Cholesterol/HDL 2.7 Ratio Thyroid 0.873 Stimulating Hormone (TSH) Blood Gas Blood arterial Specimen Source Arterial Blood 03/26/2018 8:01: Date Drawn 34 AM Arterial Blood 7.391 pH (Temp corrected ) Arterial Blood 35.4 pCO2 (Temp correct) Arterial Blood 236.2 H pO2 (Temp corrected ) Arterial Blood 21.0 L HCO3 Arterial Blood -3.2 L Base Excess Arterial Blood 99.3 H Oxygen Saturati on Asif Test ACCEPTAB Arterial Blood Right Radial Gas Puncture Site Arterial 0.3 Blood Carboxyhe moglobin Arterial Blood 0.5 Methemoglobin Blood Gas A-a 152.7 H O2 Differential Oxyhemoglobin 98.5 Percent Blood Gas 37.0 Temperature Blood Gas 16.0 Respiration Rate Blood Gas 20 Actual Respiration Rat e Blood Gas VENT - AC Modality FiO2 60.0 Blood Gas Tidal 500.0 Volume Blood Gas Low 5.0 PEEP Setting Blood Gas DT Notified Whom Blood Gas 03/19/2018 8:25:0 Notified Time 4 AM Exam/Review of Systems Exam Vitals Vital Signs Date Temp Pulse Resp B/P (MAP) Pulse Ox O2 O2 Flow FiO2 Time Delivery Rate 03/26/18 99.3 96 21 117/83 100 Mechanical 08:00 (94) Ventilator 03/26/18 60 04:02 Intake and Output 03/25/18 03/25/18 03/26/18 1515:00 23:00 07:00 IntakeIntake Total 2408.048 ml OutputOutput Total 75 ml 1225 ml BalanceBalance -75 ml 1183.048 ml Results Results 24hrs Laboratory Tests Test 03/25/18 16:16 03/25/18 17:38 03/26/18 01:02 03/26/18 01:24 White Blood 12.4 H Count Red Blood Count 5.86 Hemoglobin 17.8 Hematocrit 52.4 H Mean 89.4 Corpuscular Volume Mean 30.4 Corpuscular Hemoglobin Mean 34.0 Corpuscular Hemoglobin Conc ent Red Cell 11.9 Distribution Width Platelet Count 435 H Mean Platelet 10.0 Volume Immature 0.300 Granulocytes % Neutrophils % 89.6 H Lymphocytes % 5.0 L Monocytes % 4.6 Eosinophils % 0.0 Basophils % 0.5 Nucleated Red 0.0 Blood Cells % Immature 0.040 H Granulocytes # Neutrophils # 11.1 H Lymphocytes # 0.6 L Monocytes # 0.6 Eosinophils # 0.0 Basophils # 0.1 Nucleated Red 0.0 Blood Cells # Urine Color ARYA Urine Clarity SLIGHTLY CLOUDY A Urine pH 5.0 Urine Specific 1.030 [place] Urine Ketones 1+ H Urine Nitrite NEGATIVE Urine Bilirubin NEGATIVE Urine NEGATIVE Urobilinogen Urine Leukocyte NEGATIVE Esterase Urine 2 Microscopic RBC Urine 2 Microscopic WBC Urine Squamous FEW Epithelial Cell s Urine Mucus MANY A Urine NEGATIVE Hemoglobin Urine Glucose NEGATIVE Urine Total 1+ H Protein Sodium Level 140 Potassium Level 3.8 Chloride Level 96 L Carbon Dioxide 27 Level Anion Gap 17 H Blood Urea 24 H Nitrogen Creatinine 1.71 H Est Glomerular 41 L Filtrat Rate mL/min Glucose Level 177 Calcium Level 9.6 Total Bilirubin 0.7 Direct 0.00 Bilirubin Indirect 0.7 Bilirubin Aspartate Amino 23 Transf (AST/SGO T) Alanine 16 Aminotransferas e (ALT/SGPT) Alkaline 98 Phosphatase Troponin I < 0.012 Total Protein 8.4 H Albumin 4.6 Globulin 3.80 H Albumin/Globuli 1.21 n Ratio Lipase 63 POC Venous 2.4 *H Lactate Lactic Acid 3.1 *H Level Blood Gas Blood Specimen arterial Source Arterial Blood 03/26/2018 1:10 Date Drawn :09 AM Arterial Blood 7.298 *L pH (Temp corrected ) Arterial Blood 41.5 pCO2 (Temp correct) Arterial Blood 348.9 H pO2 (Temp corrected ) Arterial Blood 19.9 L HCO3 Arterial Blood -6.2 L Base Excess Arterial Blood 99.5 H Oxygen Saturati on Asif Test N/A Arterial Blood Right Radial Gas Puncture Site Arterial 0.3 Blood Carboxyhe moglobin Arterial Blood 0.6 Methemoglobin Blood Gas A-a 322.6 H O2 Differential Oxyhemoglobin 98.6 Percent Blood Gas 37.0 Temperature Blood Gas 14.0 Respiration Rate Blood Gas 21 Actual Respiration Rat e Blood Gas VENT - AC Modality FiO2 100.0 Blood Gas Tidal 500.0 Volume Blood Gas Low 5.0 PEEP Setting Blood Gas Abner SALCEDO Critical Value Read Back Blood Gas S.H. Notified Whom Blood Gas 03/26/2018 1:30 Notified Time :19 AM Test 03/26/18 05:10 03/26/18 07:30 White Blood 14.3 H Count Red Blood Count 4.90 Hemoglobin 14.6 Hematocrit 43.7 Mean 89.2 Corpuscular Volume Mean 29.8 Corpuscular Hemoglobin Mean 33.4 Corpuscular Hemoglobin Conc ent Red Cell 12.6 Distribution Width Platelet Count 298 # Mean Platelet 10.0 Volume Immature 0.300 Granulocytes % Neutrophils % Segmented 41 Neutrophils % (Manual) Band 49 H Neutrophils % (Manual) Lymphocytes % Lymphocytes % 5 L (Manual) Monocytes % Monocytes % 3 (Manual) Eosinophils % Basophils % Metamyelocytes 1 H % (manual) Promyelocytes % 1 H (Manual) Nucleated Red 0.0 Blood Cells % Immature 0.050 H Granulocytes # Neutrophils # Neutrophils # 6.9 (Manual) Band 7.0 H Neutrophils # Lymphocytes 0.7 L (Manual) Lymphocytes # Monocytes # Monocytes # 0.4 (Manual) Eosinophils # Basophils # Metamyelocytes 0.1 H # Promyelocytes # 0.1 H Nucleated Red Blood Cells # Platelet NORMAL Estimate Polychromasia 1+ Poikilocytosis 2+ Spherocytes 1+ Sodium Level 139 Potassium Level 4.5 Chloride Level 106 # Carbon Dioxide 22 Level Anion Gap 11 Blood Urea 22 H Nitrogen Creatinine 1.17 Est Glomerular > 60 Filtrat Rate mL/min Glucose Level 124 # Hemoglobin A1c 5.5 Calcium Level 8.3 L Magnesium Level 1.6 L Total Bilirubin 0.8 Direct 0.00 Bilirubin Indirect 0.8 Bilirubin Aspartate Amino 19 Transf (AST/SGO T) Alanine 18 Aminotransferas e (ALT/SGPT) Alkaline 54 Phosphatase Total Protein 5.7 #L Albumin 2.9 #L Globulin 2.80 Albumin/Globuli 1.03 n Ratio Triglycerides 32 Level Cholesterol 111 Level LDL 65 Cholesterol, Calculated HDL Cholesterol 40 Cholesterol/HDL 2.7 Ratio Thyroid 0.873 Stimulating Hormone (TSH) Blood Gas Blood arterial Specimen Source Arterial Blood 03/26/2018 8:01: Date Drawn 34 AM Arterial Blood 7.391 pH (Temp corrected ) Arterial Blood 35.4 pCO2 (Temp correct) Arterial Blood 236.2 H pO2 (Temp corrected ) Arterial Blood 21.0 L HCO3 Arterial Blood -3.2 L Base Excess Arterial Blood 99.3 H Oxygen Saturati on Asif Test ACCEPTAB Arterial Blood Right Radial Gas Puncture Site Arterial 0.3 Blood Carboxyhe moglobin Arterial Blood 0.5 Methemoglobin Blood Gas A-a 152.7 H O2 Differential Oxyhemoglobin 98.5 Percent Blood Gas 37.0 Temperature Blood Gas 16.0 Respiration Rate Blood Gas 20 Actual Respiration Rat e Blood Gas VENT - AC Modality FiO2 60.0 Blood Gas Tidal 500.0 Volume Blood Gas Low 5.0 PEEP Setting Blood Gas DT Notified Whom Blood Gas 03/19/2018 8:25:0 Notified Time 4 AM Medications Medication Current Medications Ondansetron HCl (Zofran Inj) 4 mg ER BRIDGE PRN IV NAUSEA/VOMITING; Start 03/25/18 at 19:30; Stop 03/26/18 at 19:29 Acetaminophen (Tylenol Tab) 650 mg ER BRIDGE PRN PO .MILD PAIN 1-3 OR TEMP; Start 03/25/18 at 19:30; Stop 03/26/18 at 19:29 Pantoprazole 80 mg/Sodium Chloride 100 ml @ 10 mls/hr Q10H IV Last administered on 03/26/18at 01:37; Admin Dose 10 MLS/HR; Start 03/25/18 at 21:15 Sodium Chloride 1,000 ml @ 100 mls/hr Q10H IV Last administered on 03/26/18at 04:34; Admin Dose 100 MLS/HR; Start 03/25/18 at 19:56 IV Flush (NS 3 ml) 3 ml PER PROTOCOL IV ; Start 03/25/18 at 20:00 Ondansetron HCl (Zofran Inj) 4 mg Q6H PRN IV NAUSEA/VOMITING; Start 03/25/18 at 20:00 Morphine Sulfate (morphine) 2 mg Q4H PRN IV .PAIN 7-10 Last administered on 03/26/18at 04:01; Admin Dose 2 MG; Start 03/25/18 at 20:00 Ondansetron HCl (Zofran Inj) 4 mg PACU ORDER PRN IV NAUSEA/VOMITING; Start 03/25/18 at 20:30 Piperacillin Sod/ Tazobactam Sod 100 ml @ 200 mls/hr Q6 IVPB Last administered on 03/26/18at 05:06; Admin Dose 200 MLS/HR; Start 03/26/18 at 00:00 Ondansetron HCl (Zofran Inj) 4 mg Q6H PRN IV NAUSEA AND/OR VOMITING; Start 03/25/18 at 23:00 Hydromorphone HCl (Dilaudid) 0.5 mg Q4H PRN IV BREAKTHROUGH PAIN; Start 03/25/18 at 23:00 Diphenhydramine HCl (Benadryl) 25 mg Q6H PRN IV PRURITUS; Start 03/25/18 at 23:00 Famotidine (Pepcid Iv) 20 mg Q12 IV Last administered on 03/26/18at 08:29; Admin Dose 20 MG; Start 03/26/18 at 09:00 Propofol 100 ml @ 2.43 mls/hr Q12H IV Last administered on 03/26/18at 06:30; Admin Dose 9.72 MLS/HR; Start 03/26/18 at 02:30 DOTTIE PAGAN Mar 26, 2018 09:08
[2018-03-26] MEDS ORDERED: MAGNESIUM SULFATE 1 GM/D5W 100 ML IVPB ONE (09:30)
--- NOTE | 2018-03-26 12:20 | CONS ---
DATE OF ADMISSION: 03/25/2018 DATE OF CONSULTATION: TYPE OF CONSULTATION: Pulmonary. REASON FOR CONSULTATION: Ventilator management. Thank you, Dr. Martin, for this consultation. HISTORY OF PRESENT ILLNESS: This is a pleasant gentleman who presented to [facility] for abdominal pain that had been present and severe for several days with associated shantel k stools. Mild nausea and vomiting, but no hemoptysis or hematemesis. No dyspnea. No chest pain. On admission, he was found to have perforated viscus on CT abdomen. The patient taken was emergently to the OR overnight and had endoscopic repair of perforated peptic ulcer. Postoperatively, he remai ns intubated on mechanical ventilation; however hemodynamically stable, awake, alert and oriented. PAST MEDICAL HISTORY: As above. MEDICATIONS: Per chart. ALLERGIES: NONE. SOCIAL HISTORY: He is a nonsmoker, no alcohol, no history of drug use. FAMILY HISTORY: Noncontributory. REVIEW OF SYSTEMS: A 12-point review of systems is currently unable to perform. PHYSICAL EXAMINATION: GENERAL: Well-nourished, well-developed gentleman on mechanical ventilation, appears comfortable at rest, in no acute distress. VITAL SIGNS: Currently afebrile, pulse is 100, blood pressure 120/80, O2 saturation 96%, FiO2 of 40% , orally intubated. NECK: Supple. No JVD or lymphadenopathy. CARDIAC: S1, S2. No added sounds or murmurs. CHEST: Diminished air entry bilaterally. ABDOMEN: Soft, nontender. No guarding or rebound. EXTREMITIES: No cyanosis, clubbing. A 1+ edema. NEUROLOGIC: Grossly intact. No focal deficits. LABORATORY DATA: White count 14.3, hemoglobin 14.6, platelets within normal limits. Lactic acid ini tially 3.1. Arterial blood gas this morning: pH 7.39, pCO2 of 35, pO2 of 236. DIAGNOSTIC DATA: Chest x-ray shows no infiltrates or effusions. IMPRESSION AND PLAN: 1. Perforated peptic ulcer, status post repair. 2. Gastrointestinal bleed. 3. Intubated postoperatively. PLAN: 1. We will have surgical clearance to proceed with CPAP weaning trial and extubation. 2. Post-extubation incentive spirometry. 3. DVT and GI prophylaxis. 4. Physical therapy evaluation and encourage out of bed. 5. Advance diet once cleared by GI. Dictated By: UZMA PATEL MD SV/NTS Conf#: [id number] [facility]#: [id number] CC: TARA DUGGAN MD; DOTTIE PAGAN; KINGS PIERRE MD;*End*
--- NOTE | 2018-03-26 15:07 | RADRPT ---
Echocardiogram Report Patient Name: SHO HOWELL DPatient ID: [id number] : 1960 (57y 5m)Study Date: 03/26/2018 7:56:12 AM Gender: MAccession #: [id number] Tech: Mell Willard DIMAS Location: [facility] Ref.Physician: TARA DUGGAN Height(Cm): BSA: Weight(Kg): Quality: Technically Difficult StudyAccount #: Procedures: Echocardiographic Report: Transthoracic echocardiogram with complete 2D, M-Mode, and doppler examination. Indications: Pre-op. Measurements: 2D/M Mode Doppler Measurement Value Normal Range Measurement Value Normal Range LVIDd 2D 3.9 [ 4.2 - 5.8 ] cm AV Peak Addy 1.2 [ 100.0 - 170.0 ] cm/sec LVIDs 2D 1.9 [ 2.5 - 4.0 ] cm AV Peak PG 6.0 [ 2.0 - 9.0 ] mmHg LVPWd 2D 1.1 [ 0.6 - 1.0 ] cm LVOT Peak Addy 0.9 [ 70.0 - 110.0 ] cm/sec IVSd 2D 1.2 [ 0.6 - 1.0 ] cm LVOT Peak PG 3.0 [ 2.0 - 6.0 ] mmHg IVS/LVPW 2D 1.0 ratio MV E Peak Addy 0.5 [ 60.0 - 130.0 ] cm/sec AoR Diam 2D 2.5 [ 2.6 - 3.4 ] cm MV A Peak Addy 0.6 [ 100.0 - 120.0 ] cm/sec LA/Ao 2D 1 ratio MV E/A 0.8 [ 0.8 - 1.5 ] ratio LA Dimen 2D 2.8 [ 3.0 - 4.0 ] cm MV Decel Time 141 [ 104 - 258 ] msec Lat E` Addy 0.1 [ 10.0 - 15.0 ] cm/sec MV E/A 0.8 [ 0.8 - 1.5 ] ratio Findings: Left Ventricle: Overall, normal left ventricular systolic function. Not all segments visualized. Normal left ventricular cavity size. Mild concentric left ventricular hypertrophy. Ejection fraction is visually estimated at 65 %. Tissue Doppler/Mitral Doppler indices are consistent with impaired relaxation (Stage I diastolic dysfunction). Right Ventricle: Normal right ventricular size. Normal right ventricular systolic function. Left Atrium: The left atrium is normal in size. Right Atrium: The right atrium is normal in size. Mitral Valve: Mitral valve is not well visualized. Trace mitral regurgitation. Aortic Valve: No significant aortic stenosis or insufficiency. Aortic valve not well visualized. Tricuspid Valve: Tricuspid valve not well visualized. No evidence of tricuspid regurgitation. Pulmonic Valve: Pulmonic valve not well visualized. Pericardium: Normal pericardium with no significant pericardial effusion. Aorta: Normal aortic root. IVC: Normal size and normal respiratory collapse consistent with normal right atrial pressure. Conclusions: Overall, normal left ventricular systolic function. Not all segments visualized. Normal left ventricular cavity size. Mild concentric left ventricular hypertrophy. Ejection fraction is visually estimated at 65 %. Tissue Doppler/Mitral Doppler indices are consistent with impaired relaxation (Stage I diastolic dysfunction). Normal right ventricular size. Normal right ventricular systolic function. The left atrium is normal in size. The right atrium is normal in size. No significant valvular stenosis or regurgitation seen. Normal pericardium with no significant pericardial effusion. Electronically Signed By: Johan Upton 2018-03-26 15:06:36 PST
[2018-03-27] VITALS (12 sets, daily range): BP systolic 104–136; BP diastolic 62–85; PULSE 68–103; RESP 18–26
[2018-03-27] MEDS: PIPER-TAZO 3.375 GM IV (PMX) 100 ML IVPB SCH ×5 (00:27→23:52)
[2018-03-27] MEDS: PROPOFOL 100 ML IV SCH (02:30)
[2018-03-27] MEDS: SOD CHLORIDE 0.9% 1,000 ML IV SCH ×3 (02:44→15:21)
[2018-03-27] MEDS: FAMOTIDINE 20 MG INJ IV SCH (08:12)
[2018-03-27] MEDS: PANTOPRAZOLE IV 80 MG in SOD CHLORIDE 0.9% 100 ML IV SCH ×2 (08:12→23:52)
--- NOTE | 2018-03-27 10:10 | PN ---
Date/Time of Note Date/Time of Note DATE: 03/27/18 TIME: 10:08 Assessment/Plan VTE Prophylaxis [place] [facility] [place]: 6 SCD applied (from Ns): Yes Pharmacological prophylaxis: NA/contraindicated Pharm contraindication: bleeding Lines/Catheters IV Catheter Type (from [facility]): Peripheral IV Urinary Cath still in place: Yes Reason Cath still needed: urinary retention Assessment/Plan Hospital Course S: Patient on nasal cannula, still with NG tube in place with some dark output, more awake and alert. Still on Protonix drip and IV fluids. Hemoglobin stable. Objective VS - see below Physical exam General: Lying in bed, opens eyes, NG tube in place Head: Normocephalic atraumatic Eyes: EOMI, pupils reactive to light Neck: Supple, nontender, midline Respiratory: Clear to auscultation bilaterally Cardiovascular: regular rate, no obvious murmurs Gastrointestinal: Nondistended, soft, surgical incisions covered in bandage. Neurological: No apparent focal deficits Date/Time of Note Date/Time of Note DATE: 03/26/18 TIME: 00:13 Operative Report Procedure Date: Mar 25, 2018 Preoperative Diagnosis Pneumoperitoneum suspect perforated ulcer Postoperative Diagnosis Perforated peptic ulcer Operation/Procedure Performed Scopic repair of perforated peptic ulcer Assessment and plan: 57-year-old male who presents with: # Perforated viscus with abdominal pain-Per CT, likely stomach or proximal small bowel. Again status post surgical repair postop day #1. NG tube still in place. No signs of any upper or lower GI bleeding presently. -For now continue PPI IV drip, and IV fluids -we will try to discuss with surgery team about when this can be stopped. We will also asked him when diet can be started -Follow-up postop recommendations, and continue prophylactic IV antibiotic -Follow-up pulmonary recommendations # Melena-this was noted on admission, very likely secondary to above perforated viscus. None presently. -For now continue IV Protonix PPI drip, again we will try to reach out to the surgeon about when this can be stopped as the bleeding appears to have subsided at this point -Consider consult GI if needed Acute kidney injury versus chronic kidney disease-improved now, has been on IV fluids since admission per patient does not follow-up with a physician on a normal basis so unknown baseline -Continue NS IV fluids -Monitor,consult nephrology if needed Nausea vomiting-Secondary to above perforated viscus -For now continue to treat with NG tube and Zofran Critical care time spent on patient care today equals 40 minutes. Result Diagram: 03/27/18 0400 03/27/18 0400 Results 24hrs Laboratory Tests Test 03/26/18 15:32 03/27/18 04:00 Blood Gas Specimen Source Blood arterial Arterial Blood Date Drawn 03/26/2018 3:55:03 PM Arterial Blood pH (Temp corrected) 7.383 Arterial Blood pCO2 (Temp correct) 35.6 Arterial Blood pO2 (Temp corrected) 113.1 H Arterial Blood HCO3 20.7 L Arterial Blood Base Excess -3.6 L Arterial Blood Oxygen Saturation 98.0 Asif Test ACCEPTAB Arterial Blood Gas Puncture Site Right Radial Arterial Blood Carboxyhemoglobin 0.8 Arterial Blood Methemoglobin 0.2 Blood Gas A-a O2 Differential 59.0 H Oxyhemoglobin Percent 97.0 Blood Gas Temperature 37.0 Blood Gas Actual Respiration Rate 18 Blood Gas Modality MASK - CPAP FiO2 30.0 Blood Gas Tidal Volume 550.0 Blood Gas Low PEEP Setting 5.0 Blood Gas Critical Value Read Back Skyla FREEMAN RN Blood Gas Notified Whom RDIX Blood Gas Notified Time 03/26/2018 4:14:33 PM White Blood Count 14.0 H Red Blood Count 4.23 L Hemoglobin 12.8 L Hematocrit 38.3 L Mean Corpuscular Volume 90.5 Mean Corpuscular Hemoglobin 30.3 Mean Corpuscular Hemoglobin Concent 33.4 Red Cell Distribution Width 13.1 Platelet Count 263 Mean Platelet Volume 11.2 H Immature Granulocytes % 0.400 Neutrophils % 89.4 H Lymphocytes % 5.9 L Monocytes % 4.2 Eosinophils % 0.0 Basophils % 0.1 Nucleated Red Blood Cells % 0.0 Immature Granulocytes # 0.050 H Neutrophils # 12.5 H Lymphocytes # 0.8 Monocytes # 0.6 Eosinophils # 0.0 Basophils # 0.0 Nucleated Red Blood Cells # 0.0 Sodium Level 140 Potassium Level 4.0 Chloride Level 108 Carbon Dioxide Level 24 Anion Gap 8 Blood Urea Nitrogen 23 H Creatinine 1.13 Est Glomerular Filtrat Rate mL/min > 60 Glucose Level 86 Calcium Level 8.1 L Phosphorus Level 3.3 Magnesium Level 2.1 Exam/Review of Systems Exam Vitals Vital Signs Date Temp Pulse Resp B/P (MAP) Pulse Ox O2 O2 Flow FiO2 Time Delivery Rate 03/27/18 99.6 100 22 124/80 96 Room Air 08:00 (95) 03/27/18 2.0 04:33 03/26/18 30 16:55 Intake and Output 03/26/18 03/26/18 03/27/18 1515:00 23:00 07:00 IntakeIntake Total 1050.47 ml 880 ml 980 ml OutputOutput Total 800 ml 460 ml 870 ml BalanceBalance 250.47 ml 420 ml 110 ml Results Results 24hrs Laboratory Tests Test 03/26/18 15:32 03/27/18 04:00 Blood Gas Specimen Source Blood arterial Arterial Blood Date Drawn 03/26/2018 3:55:03 PM Arterial Blood pH (Temp corrected) 7.383 Arterial Blood pCO2 (Temp correct) 35.6 Arterial Blood pO2 (Temp corrected) 113.1 H Arterial Blood HCO3 20.7 L Arterial Blood Base Excess -3.6 L Arterial Blood Oxygen Saturation 98.0 Asif Test ACCEPTAB Arterial Blood Gas Puncture Site Right Radial Arterial Blood Carboxyhemoglobin 0.8 Arterial Blood Methemoglobin 0.2 Blood Gas A-a O2 Differential 59.0 H Oxyhemoglobin Percent 97.0 Blood Gas Temperature 37.0 Blood Gas Actual Respiration Rate 18 Blood Gas Modality MASK - CPAP FiO2 30.0 Blood Gas Tidal Volume 550.0 Blood Gas Low PEEP Setting 5.0 Blood Gas Critical Value Read Back Skyla FREEMAN RN Blood Gas Notified Whom RDIX Blood Gas Notified Time 03/26/2018 4:14:33 PM White Blood Count 14.0 H Red Blood Count 4.23 L Hemoglobin 12.8 L Hematocrit 38.3 L Mean Corpuscular Volume 90.5 Mean Corpuscular Hemoglobin 30.3 Mean Corpuscular Hemoglobin Concent 33.4 Red Cell Distribution Width 13.1 Platelet Count 263 Mean Platelet Volume 11.2 H Immature Granulocytes % 0.400 Neutrophils % 89.4 H Lymphocytes % 5.9 L Monocytes % 4.2 Eosinophils % 0.0 Basophils % 0.1 Nucleated Red Blood Cells % 0.0 Immature Granulocytes # 0.050 H Neutrophils # 12.5 H Lymphocytes # 0.8 Monocytes # 0.6 Eosinophils # 0.0 Basophils # 0.0 Nucleated Red Blood Cells # 0.0 Sodium Level 140 Potassium Level 4.0 Chloride Level 108 Carbon Dioxide Level 24 Anion Gap 8 Blood Urea Nitrogen 23 H Creatinine 1.13 Est Glomerular Filtrat Rate mL/min > 60 Glucose Level 86 Calcium Level 8.1 L Phosphorus Level 3.3 Magnesium Level 2.1 Medications Medication Current Medications Pantoprazole 80 mg/Sodium Chloride 100 ml @ 10 mls/hr Q10H IV Last administered on 03/27/18 08:12; Admin Dose 10 MLS/HR; Start 03/25/18 at 21:15 Sodium Chloride 1,000 ml @ 100 mls/hr Q10H IV Last administered on 03/27/18at 0 2:44; Admin Dose 100 MLS/HR; Start 03/25/18 at 19:56 IV Flush (NS 3 ml) 3 ml PER PROTOCOL IV ; Start 03/25/18 at 20:00 Morphine Sulfate (morphine) 2 mg Q4H PRN IV .PAIN 7-10 Last administered on 03/26/18at 09:53; Admin Dose 2 MG; Start 03/25/18 at 20:00 Piperacillin Sod/ Tazobactam Sod 100 ml @ 200 mls/hr Q6 IVPB Last administered on 03/27/18at 05:37; Admin Dose 200 MLS/HR; Start 03/26/18 at 00:00 Ondansetron HCl (Zofran Inj) 4 mg Q6H PRN IV NAUSEA AND/OR VOMITING; Start 03/25/18 at 23:00 Hydromorphone HCl (Dilaudid) 0.5 mg Q4H PRN IV BREAKTHROUGH PAIN Last administered on 03/26/18at 10:58; Admin Dose 0.5 MG; Start 03/25/18 at 23:00 Diphenhydramine HCl (Benadryl) 25 mg Q6H PRN IV PRURITUS; Start 03/25/18 at 23:00 Propofol 100 ml @ 2.43 mls/hr Q12H IV Last administered on 03/26/18at 06:30; Admin Dose 9.72 MLS/HR; Start 03/26/18 at 02:30 DOTTIE PAGAN Mar 27, 2018 10:10
--- NOTE | 2018-03-27 10:59 | CONS ---
Consult Date/Type/Reason Admit Date/Time Mar 25, 2018 at 19:08 Initial Consult Date 03/25/18 Type of Consult Pulmonary Date/Time of Note DATE: 03/27/18 TIME: 10:58 Subjective Patient stable this morning. No new events stable post extubation no respiratory distress. Objective Vital Signs Date Temp Pulse Resp B/P (MAP) Pulse Ox O2 O2 Flow FiO2 Time Delivery Rate 03/27/18 99.6 100 22 124/80 96 Room Air 08:00 (95) 03/27/18 2.0 04:33 03/26/18 30 16:55 Intake and Output 03/26/18 03/26/18 03/27/18 1414:59 22:59 06:59 IntakeIntake Total 1057.76 ml 882.43 ml 980 ml OutputOutput Total 800 ml 450 ml 930 ml BalanceBalance 257.76 ml 432.43 ml 50 ml Exam GENERAL: Well-nourished well-developed gentleman comfortable at rest VITAL SIGNS: per chart NECK: Supple. No JVD or lymphadenopathy. CARDIAC EXAM: S1, S2. No added sounds or murmurs. CHEST: clear bilaterally, No added sounds, rales or wheezes ABDOMEN: Soft, nontender. No guarding or rebound. EXTREMITIES: No cyanosis, clubbing or edema. NEUROLOGIC: Generalized weakness. No focal deficits. Vent Setting Ventilator Support Mode: CPAP, PS Fraction of Inspired Oxygen pe: 30 Positive End Expiratory Pressu: 5.0 Results/Medications Result Diagram: 03/27/18 0400 03/27/18 0400 Results 24 hrs Laboratory Tests Test 03/26/18 15:32 03/27/18 04:00 Blood Gas Specimen Source Blood arterial Arterial Blood Date Drawn 03/26/2018 3:55:03 PM Arterial Blood pH (Temp corrected) 7.383 Arterial Blood pCO2 (Temp correct) 35.6 Arterial Blood pO2 (Temp corrected) 113.1 H Arterial Blood HCO3 20.7 L Arterial Blood Base Excess -3.6 L Arterial Blood Oxygen Saturation 98.0 Asif Test ACCEPTAB Arterial Blood Gas Puncture Site Right Radial Arterial Blood Carboxyhemoglobin 0.8 Arterial Blood Methemoglobin 0.2 Blood Gas A-a O2 Differential 59.0 H Oxyhemoglobin Percent 97.0 Blood Gas Temperature 37.0 Blood Gas Actual Respiration Rate 18 Blood Gas Modality MASK - CPAP FiO2 30.0 Blood Gas Tidal Volume 550.0 Blood Gas Low PEEP Setting 5.0 Blood Gas Critical Value Read Back DioneBaudilio FREEMAN RN Blood Gas Notified Whom RDIX Blood Gas Notified Time 03/26/2018 4:14:33 PM White Blood Count 14.0 H Red Blood Count 4.23 L Hemoglobin 12.8 L Hematocrit 38.3 L Mean Corpuscular Volume 90.5 Mean Corpuscular Hemoglobin 30.3 Mean Corpuscular Hemoglobin Concent 33.4 Red Cell Distribution Width 13.1 Platelet Count 263 Mean Platelet Volume 11.2 H Immature Granulocytes % 0.400 Neutrophils % 89.4 H Segmented Neutrophils % (Manual) 58 Band Neutrophils % (Manual) 33 H Lymphocytes % 5.9 L Lymphocytes % (Manual) 8 L Monocytes % 4.2 Monocytes % (Manual) 1 Eosinophils % 0.0 Basophils % 0.1 Nucleated Red Blood Cells % 0.0 Immature Granulocytes # 0.050 H Neutrophils # 12.5 H Neutrophils # (Manual) 8.8 H Band Neutrophils # 4.6 H Lymphocytes (Manual) 1.1 Lymphocytes # 0.8 Monocytes # 0.6 Monocytes # (Manual) 0.1 L Eosinophils # 0.0 Basophils # 0.0 Nucleated Red Blood Cells # 0.0 Platelet Estimate NORMAL Poikilocytosis 3+ Anisocytosis 1+ Microcytosis 1+ Sodium Level 140 Potassium Level 4.0 Chloride Level 108 Carbon Dioxide Level 24 Anion Gap 8 Blood Urea Nitrogen 23 H Creatinine 1.13 Est Glomerular Filtrat Rate mL/min > 60 Glucose Level 86 Calcium Level 8.1 L Phosphorus Level 3.3 Magnesium Level 2.1 Medications Current Medications Pantoprazole 80 mg/Sodium Chloride 100 ml @ 10 mls/hr Q10H IV Last administered on 03/27/18at 08:12; Admin Dose 10 MLS/HR; Start 03/25/18 at 21:15 Sodium Chloride 1,000 ml @ 100 mls/hr Q10H IV Last administered on 03/27/18at 02:44; Admin Dose 100 MLS/HR; Start 03/25/18 at 19:56 IV Flush (NS 3 ml) 3 ml PER PROTOCOL IV ; Start 03/25/18 at 20:00 Morphine Sulfate (morphine) 2 mg Q4H PRN IV .PAIN 7-10 Last administered on 03/26/18at 09:53; Admin Dose 2 MG; Start 03/25/18 at 20:00 Piperacillin Sod/ Tazobactam Sod 100 ml @ 200 mls/hr Q6 IVPB Last administered on 03/27/18at 05:37; Admin Dose 200 MLS/HR; Start 03/26/18 at 00:00 Ondansetron HCl (Zofran Inj) 4 mg Q6H PRN IV NAUSEA AND/OR VOMITING; Start 03/25/18 at 23:00 Hydromorphone HCl (Dilaudid) 0.5 mg Q4H PRN IV BREAKTHROUGH PAIN Last administered on 03/26/18at 10:58; Admin Dose 0.5 MG; Start 03/25/18 at 23:00 Diphenhydramine HCl (Benadryl) 25 mg Q6H PRN IV PRURITUS; Start 03/25/18 at 23:00 Propofol 100 ml @ 2.43 mls/hr Q12H IV Last administered on 03/26/18at 06:30; Admin Dose 9.72 MLS/HR; Start 03/26/18 at 02:30 Assessment/Plan Hospital Course (Demo Recall) IMPRESSION AND PLAN: 1. Perforated peptic ulcer, status post repair. 2. Gastrointestinal bleed. 3. Intubated postoperatively. PLAN: 1. Incentive spirometry postextubation 2. DC Patel catheter 3. DVT and GI prophylaxis. 4. Physical therapy evaluation and encourage out of bed. 5. Advance diet once cleared by GI. Stable for transfer to [facility] Critical care time 40 minutes UZMA PATEL MD, [facility] Mar 27, 2018 10:59
[2018-03-27] MEDS ORDERED: SUCRALFATE 1 GM TAB PO SCH (17:00)
[2018-03-27] MEDS ORDERED: SUCRALFATE 1 GM TAB NGT SCH (17:30)
[2018-03-27] MEDS: SUCRALFATE (100 MG/ML) 10ML CUP NGT SCH ×2 (17:50→20:27)
[2018-03-27] MEDS ORDERED: ACETAMINOPHEN 1000MG/100ML IV 100 ML IVPB PRN (21:30)
[2018-03-28] MEDS: SOD CHLORIDE 0.9% 1,000 ML IV SCH ×4 (01:47→23:52)
[2018-03-28 02:10] VITALS: BP 146/84; PULSE 98; RESP 20
[2018-03-28] MEDS: PIPER-TAZO 3.375 GM IV (PMX) 100 ML IVPB SCH ×4 (05:02→23:52)
[2018-03-28 07:13] VITALS: BP 138/88; PULSE 100; RESP 15
[2018-03-28] MEDS: SUCRALFATE (100 MG/ML) 10ML CUP NGT SCH ×4 (08:59→20:46)
[2018-03-28] MEDS: PANTOPRAZOLE IV 80 MG in SOD CHLORIDE 0.9% 100 ML IV SCH ×2 (08:59→18:50)
--- NOTE | 2018-03-28 13:50 | PN ---
Date/Time of Note Date/Time of Note DATE: 03/28/18 TIME: 13:47 Subjective Patient lying comfortably in bed NG tube in place output is moderate 800 cc over 24 hours. Bilious On exam nontender. Patient is on PPI and Carafate Objective Vitals Vital Signs Date Temp Pulse Resp B/P (MAP) Pulse Ox O2 O2 Flow FiO2 Time Delivery Rate 03/28/18 98.6 07:38 03/28/18 100 15 138/88 100 Room Air 07:13 (105) 03/27/18 2.0 04:33 03/26/18 30 16:55 Intake and Output 03/27/18 03/27/18 03/28/18 1515:00 23:00 07:00 IntakeIntake Total 540 ml 600 ml 1420 ml OutputOutput Total 450 ml 800 ml 1100 ml BalanceBalance 90 ml -200 ml 320 ml Awake alert no complaints. Lungs clear to auscultation heart regular rate and rhythm abdomen soft nondistended nontender Results Result Diagram: 03/28/18 0448 03/28/18 0448 Medications Medications Current Medications Pantoprazole 80 mg/Sodium Chloride 100 ml @ 10 mls/hr Q10H IV Last administered on 03/28/18at 08:59; Admin Dose 10 MLS/HR; Start 03/25/18 at 21:15 Sodium Chloride 1,000 ml @ 100 mls/hr Q10H IV Last administered on 03/28/18at 11:52; Admin Dose 100 MLS/HR; Start 03/25/18 at 19:56 IV Flush (NS 3 ml) 3 ml PER PROTOCOL IV ; Start 03/25/18 at 20:00 Morphine Sulfate (morphine) 2 mg Q4H PRN IV .PAIN 7-10 Last administered on 03/26/18at 09:53; Admin Dose 2 MG; Start 03/25/18 at 20:00 Piperacillin Sod/ Tazobactam Sod 100 ml @ 200 mls/hr Q6 IVPB Last administered on 03/28/18at 11:58; Admin Dose 200 MLS/HR; Start 03/26/18 at 00:00 Ondansetron HCl (Zofran Inj) 4 mg Q6H PRN IV NAUSEA AND/OR VOMITING; Start 03/25/18 at 23:00 Hydromorphone HCl (Dilaudid) 0.5 mg Q4H PRN IV BREAKTHROUGH PAIN Last administered on 03/26/18at 10:58; Admin Dose 0.5 MG; Start 03/25/18 at 23:00 Diphenhydramine HCl (Benadryl) 25 mg Q6H PRN IV PRURITUS; Start 03/25/18 at 23:00 Sucralfate (Carafate Susp) 1 gm QID NGT Last administered on 03/28/18at 12:46; Admin Dose 1 GM; Start 03/27/18 at 17:30 Acetaminophen 100 ml @ 400 mls/hr Q8H PRN IVPB FEVER GREATER THAN 100.5 Last administered on 03/28/18at 06:53; Admin Dose 400 MLS/HR; Start 03/27/18 at 21:30; Stop 03/28/18 at 21:29 VTE Prophylaxis Risk score (from Ns)>0 risk: 6 SCD applied (from [facility] [place] Yes Lines/Catheters IV Catheter Type: Peripheral IV Patel in Place: No Assessment/Plan Assessment/Plan Status post laparoscopic repair of perforated ulcer, likely peptic ulcer from acid. Keep NG tube. Keep n.p.o. Carafate and PPI. Consider liquids tomorrow. KINGS PIERRE MD Mar 28, 2018 13:50
--- NOTE | 2018-03-28 14:20 | PN ---
Date/Time of Note Date/Time of Note DATE: 03/28/18 TIME: 14:18 Assessment/Plan VTE Prophylaxis Risk score (from Ns)>0 risk: 6 SCD applied (from Nsg): Yes Pharmacological prophylaxis: other Lines/Catheters IV Catheter Type (from Nrsg): Peripheral IV Urinary Cath still in place: No Assessment/Plan Hospital Course S: Patient out of ICU now, still n.p.o. with NG tube in place. Seen by surgery team earlier today. Tolerating PPI and Carafate. Objective VS - see below Physical exam General: Lying in bed, alert, NG tube in place Head: Normocephalic atraumatic Eyes: EOMI, pupils reactive to light Neck: Supple, nontender, midline Respiratory: Clear to auscultation bilaterally Cardiovascular: regular rate, no obvious murmurs Gastrointestinal: Nondistended, soft, surgical incisions covered in bandage. Neurological: No apparent focal deficits Date/Time of Note Date/Time of Note DATE: 03/26/18 TIME: 00:13 Operative Report Procedure Date: Mar 25, 2018 Preoperative Diagnosis Pneumoperitoneum suspect perforated ulcer Postoperative Diagnosis Perforated peptic ulcer Operation/Procedure Performed Scopic repair of perforated peptic ulcer Assessment and plan: 57-year-old male who presents with: # Perforated viscus with abdominal pain-Per CT, likely stomach or proximal small bowel. Again status post surgical repair postop day #2. NG tube still in place. No signs of any upper or lower GI bleeding presently. -For now continue PPI and IV fluids as well as Carafate -Follow-up postop recommendations, and continue prophylactic IV antibiotic -Per surgery team, likely to start liquid diet tomorrow if no acute events overnight, also follow-up pulmonary recommendations # Melena-this was noted on admission, very likely secondary to above perforated viscus. None presently. -For now continue as mentioned above continue Carafate and Protonix, monitor -Consider consult GI if needed Acute kidney injury versus chronic kidney disease-improved now, has been on IV fluids since admission per patient does not follow-up with a physician on a normal basis so unknown baseline -Continue NS IV fluids -Monitor,consult nephrology if needed Nausea vomiting-Secondary to above perforated viscus, resolving now -For now continue to treat with NG tube and Zofran as needed Result Diagram: 03/28/18 0448 03/28/18447 Results 24hrs Laboratory Tests Test 03/28/18 04:48 White Blood Count 14.4 H Red Blood Count 3.99 L Hemoglobin 12.3 L Hematocrit 36.3 L Mean Corpuscular Volume 91.0 Mean Corpuscular Hemoglobin 30.8 Mean Corpuscular Hemoglobin Concent 33.9 Red Cell Distribution Width 12.7 Platelet Count 269 Mean Platelet Volume 10.6 H Immature Granulocytes % 0.600 H Neutrophils % 89.8 H Lymphocytes % 5.4 L Monocytes % 4.0 Eosinophils % 0.0 Basophils % 0.2 Nucleated Red Blood Cells % 0.0 Immature Granulocytes # 0.080 H Neutrophils # 12.9 H Lymphocytes # 0.8 Monocytes # 0.6 Eosinophils # 0.0 Basophils # 0.0 Nucleated Red Blood Cells # 0.0 Sodium Level 142 Potassium Level 3.7 Chloride Level 109 Carbon Dioxide Level 25 Anion Gap 8 Blood Urea Nitrogen 20 Creatinine 0.98 Est Glomerular Filtrat Rate mL/min > 60 Glucose Level 84 Calcium Level 8.3 L Exam/Review of Systems Exam Vitals Vital Signs Date Temp Pulse Resp B/P (MAP) Pulse Ox O2 O2 Flow FiO2 Time Delivery Rate 03/28/18 98.6 07:38 03/28/18 100 15 138/88 100 Room Air 07:13 (105) 03/27/18 2.0 04:33 03/26/18 30 16:55 Intake and Output 03/27/18 03/27/18 03/28/18 1515:00 23:00 07:00 IntakeIntake Total 540 ml 600 ml 1420 ml OutputOutput Total 450 ml 800 ml 1100 ml BalanceBalance 90 ml -200 ml 320 ml Results Results 24hrs Laboratory Tests Test 03/28/18 04:48 White Blood Count 14.4 H Red Blood Count 3.99 L Hemoglobin 12.3 L Hematocrit 36.3 L Mean Corpuscular Volume 91.0 Mean Corpuscular Hemoglobin 30.8 Mean Corpuscular Hemoglobin Concent 33.9 Red Cell Distribution Width 12.7 Platelet Count 269 Mean Platelet Volume 10.6 H Immature Granulocytes % 0.600 H Neutrophils % 89.8 H Lymphocytes % 5.4 L Monocytes % 4.0 Eosinophils % 0.0 Basophils % 0.2 Nucleated Red Blood Cells % 0.0 Immature Granulocytes # 0.080 H Neutrophils # 12.9 H Lymphocytes # 0.8 Monocytes # 0.6 Eosinophils # 0.0 Basophils # 0.0 Nucleated Red Blood Cells # 0.0 Sodium Level 142 Potassium Level 3.7 Chloride Level 109 Carbon Dioxide Level 25 Anion Gap 8 Blood Urea Nitrogen 20 Creatinine 0.98 Est Glomerular Filtrat Rate mL/min > 60 Glucose Level 84 Calcium Level 8.3 L Medications Medication Current Medications Pantoprazole 80 mg/Sodium Chloride 100 ml @ 10 mls/hr Q10H IV Last administered on 03/28/18 08:59; Admin Dose 10 MLS/HR; Start 03/25/18 at 21:15 Sodium Chloride 1,000 ml @ 100 mls/hr Q10H IV Last administered on 03/28/18 11:52; Admin Dose 100 MLS/HR; Start 03/25/18 at 19:56 IV Flush (NS 3 ml) 3 ml PER PROTOCOL IV ; Start 03/25/18 at 20:00 Morphine Sulfate (morphine) 2 mg Q4H PRN IV .PAIN 7-10 Last administered on 03/26/18 09:53; Admin Dose 2 MG; Start 03/25/18 at 20:00 Piperacillin Sod/ Tazobactam Sod 100 ml @ 200 mls/hr Q6 IVPB Last administered on 03/28/18 11:58; Admin Dose 200 MLS/HR; Start 03/26/18 at 00:00 Ondansetron HCl (Zofran Inj) 4 mg Q6H PRN IV NAUSEA AND/OR VOMITING; Start 03/25/18 at 23:00 Hydromorphone HCl (Dilaudid) 0.5 mg Q4H PRN IV BREAKTHROUGH PAIN Last administered on 03/26/18 10:58; Admin Dose 0.5 MG; Start 03/25/18 at 23:00 Diphenhydramine HCl (Benadryl) 25 mg Q6H PRN IV PRURITUS; Start 03/25/18 at 23:00 Sucralfate (Carafate Susp) 1 gm QID NGT Last administered on 03/28/18 12:46; Admin Dose 1 GM; Start 03/27/18 at 17:30 Acetaminophen 100 ml @ 400 mls/hr Q8H PRN IVPB FEVER GREATER THAN 100.5 Last administered on 03/28/18 06:53; Admin Dose 400 MLS/HR; Start 03/27/18 at 21:30; Stop 03/28/18 at 21:29 DOTTIE PAGAN Mar 28, 2018 14:20
[2018-03-28 19:35] VITALS: BP 158/92; PULSE 95; RESP 20
[2018-03-28] MEDS ORDERED: VITAMIN A & D 5 GM OINT PACKET TOP ONE (21:10)
[2018-03-29 02:25] VITALS: BP 157/98; PULSE 94; RESP 20
[2018-03-29] MEDS: SOD CHLORIDE 0.9% 1,000 ML IV SCH ×2 (03:56→12:35)
[2018-03-29] MEDS: PIPER-TAZO 3.375 GM IV (PMX) 100 ML IVPB SCH ×4 (05:13→23:25)
[2018-03-29] MEDS: PANTOPRAZOLE IV 80 MG in SOD CHLORIDE 0.9% 100 ML IV SCH ×2 (05:14→16:26)
[2018-03-29 07:58] VITALS: BP 156/99; PULSE 86; RESP 18
[2018-03-29] MEDS: SUCRALFATE (100 MG/ML) 10ML CUP NGT SCH ×4 (08:48→22:44)
--- NOTE | 2018-03-29 11:18 | PN ---
Date/Time of Note Date/Time of Note DATE: 03/29/18 TIME: 11:15 Assessment/Plan VTE Prophylaxis Risk score (from Ns)>0 risk: 7 SCD applied (from Nsg): Yes Pharmacological prophylaxis: other Lines/Catheters IV Catheter Type (from Nrsg): Peripheral IV Urinary Cath still in place: No Assessment/Plan Hospital Course S: Patient still n.p.o. with NG tube in place. Seen by surgery team yesterday. Tolerating PPI and Carafate. Objective VS - see below Physical exam General: Lying in bed, alert, NG tube in place Head: Normocephalic atraumatic Eyes: EOMI, pupils reactive to light Neck: Supple, nontender, midline Respiratory: Clear to auscultation bilaterally Cardiovascular: regular rate, no obvious murmurs Gastrointestinal: Nondistended, soft, surgical incisions covered in bandage. Neurological: No apparent focal deficits Date/Time of Note Date/Time of Note DATE: 03/26/18 TIME: 00:13 Operative Report Procedure Date: Mar 25, 2018 Preoperative Diagnosis Pneumoperitoneum suspect perforated ulcer Postoperative Diagnosis Perforated peptic ulcer Operation/Procedure Performed Scopic repair of perforated peptic ulcer Assessment and plan: 57-year-old male who presents with: # Perforated viscus with abdominal pain-Per CT, likely stomach or proximal small bowel. Again status post surgical repair postop day # 3. NG tube still in place. No signs of any upper or lower GI bleeding presently. -For now continue PPI and IV fluids as well as Carafate -Follow-up postop recommendations, and continue prophylactic IV antibiotic -Per surgery team, likely to start liquid diet today, also follow-up pulmonary recommendations # Melena-this was noted on admission, very likely secondary to above perforated viscus. None presently. -For now continue as mentioned above continue Carafate and Protonix, monitor -Consider consult GI if needed Acute kidney injury versus chronic kidney disease-improved now, has been on IV fluids since admission per patient does not follow-up with a physician on a normal basis so unknown baseline -Continue NS IV fluids -Monitor,consult nephrology if needed Nausea vomiting-Secondary to above perforated viscus, resolving now -For now continue to treat with NG tube and Zofran as needed Result Diagram: 03/29/18 0438 03/29/18 0438 Results 24hrs Laboratory Tests Test 03/29/18 04:38 White Blood Count 14.3 H Red Blood Count 3.93 L Hemoglobin 11.9 L Hematocrit 35.2 L Mean Corpuscular Volume 89.6 Mean Corpuscular Hemoglobin 30.3 Mean Corpuscular Hemoglobin Concent 33.8 Red Cell Distribution Width 12.4 Platelet Count 304 Mean Platelet Volume 10.1 Immature Granulocytes % 0.400 Neutrophils % 85.4 H Segmented Neutrophils % (Manual) 85 H Band Neutrophils % (Manual) 4 Lymphocytes % 6.6 L Lymphocytes % (Manual) 8 L Monocytes % 6.7 Monocytes % (Manual) 3 Eosinophils % 0.6 Basophils % 0.3 Nucleated Red Blood Cells % 0.0 Immature Granulocytes # 0.060 H Neutrophils # 12.2 H Neutrophils # (Manual) 12.2 H Band Neutrophils # 0.5 Lymphocytes (Manual) 1.1 Lymphocytes # 1.0 Monocytes # 1.0 H Monocytes # (Manual) 0.4 Eosinophils # 0.1 Basophils # 0.0 Nucleated Red Blood Cells # 0.0 Platelet Estimate NORMAL Giant Platelets 1 H Polychromasia 1+ Poikilocytosis 1+ Anisocytosis 1+ Microcytosis 1+ Sodium Level 142 Potassium Level 3.2 L Chloride Level 105 Carbon Dioxide Level 26 Anion Gap 11 Blood Urea Nitrogen 17 Creatinine 0.95 Est Glomerular Filtrat Rate mL/min > 60 Glucose Level 79 Calcium Level 8.3 L Exam/Review of Systems Exam Vitals Vital Signs Date Temp Pulse Resp B/P (MAP) Pulse Ox O2 O2 Flow FiO2 Time Delivery Rate 03/29/18 98.8 86 18 156/99 98 07:58 (118) 03/28/18 Room Air 19:35 03/27/18 2.0 04:33 03/26/18 30 16:55 Intake and Output 03/28/18 03/28/18 03/29/18 1515:00 23:00 07:00 IntakeIntake Total 950 ml 700 ml 1250 ml OutputOutput Total 520 ml 1000 ml 800 ml BalanceBalance 430 ml -300 ml 450 ml Results Results 24hrs Laboratory Tests Test 03/29/18 04:38 White Blood Count 14.3 H Red Blood Count 3.93 L Hemoglobin 11.9 L Hematocrit 35.2 L Mean Corpuscular Volume 89.6 Mean Corpuscular Hemoglobin 30.3 Mean Corpuscular Hemoglobin Concent 33.8 Red Cell Distribution Width 12.4 Platelet Count 304 Mean Platelet Volume 10.1 Immature Granulocytes % 0.400 Neutrophils % 85.4 H Segmented Neutrophils % (Manual) 85 H Band Neutrophils % (Manual) 4 Lymphocytes % 6.6 L Lymphocytes % (Manual) 8 L Monocytes % 6.7 Monocytes % (Manual) 3 Eosinophils % 0.6 Basophils % 0.3 Nucleated Red Blood Cells % 0.0 Immature Granulocytes # 0.060 H Neutrophils # 12.2 H Neutrophils # (Manual) 12.2 H Band Neutrophils # 0.5 Lymphocytes (Manual) 1.1 Lymphocytes # 1.0 Monocytes # 1.0 H Monocytes # (Manual) 0.4 Eosinophils # 0.1 Basophils # 0.0 Nucleated Red Blood Cells # 0.0 Platelet Estimate NORMAL Giant Platelets 1 H Polychromasia 1+ Poikilocytosis 1+ Anisocytosis 1+ Microcytosis 1+ Sodium Level 142 Potassium Level 3.2 L Chloride Level 105 Carbon Dioxide Level 26 Anion Gap 11 Blood Urea Nitrogen 17 Creatinine 0.95 Est Glomerular Filtrat Rate mL/min > 60 Glucose Level 79 Calcium Level 8.3 L Medications Medication Current Medications Pantoprazole 80 mg/Sodium Chloride 100 ml @ 10 mls/hr Q10H IV Last administered on 03/29/18at 05:14; Admin Dose 10 MLS/HR; Start 03/25/18 at 21:15 Sodium Chloride 1,000 ml @ 100 mls/hr Q10H IV Last administered on 03/28/18at 23:52; Admin Dose 100 MLS/HR; Start 03/25/18 at 19:56 IV Flush (NS 3 ml) 3 ml PER PROTOCOL IV ; Start 03/25/18 at 20:00 Morphine Sulfate (morphine) 2 mg Q4H PRN IV .PAIN 7-10 Last administered on 03/26/18at 09:53; Admin Dose 2 MG; Start 03/25/18 at 20:00 Piperacillin Sod/ Tazobactam Sod 100 ml @ 200 mls/hr Q6 IVPB Last administered on 03/29/18at 05:13; Admin Dose 200 MLS/HR; Start 03/26/18 at 00:00 Ondansetron HCl (Zofran Inj) 4 mg Q6H PRN IV NAUSEA AND/OR VOMITING; Start 03/25/18 at 23:00 Hydromorphone HCl (Dilaudid) 0.5 mg Q4H PRN IV BREAKTHROUGH PAIN Last administered on 03/26/18at 10:58; Admin Dose 0.5 MG; Start 03/25/18 at 23:00 Diphenhydramine HCl (Benadryl) 25 mg Q6H PRN IV PRURITUS; Start 03/25/18 at 23:00 Sucralfate (Carafate Susp) 1 gm QID NGT Last administered on 03/29/18at 08:48; Admin Dose 1 GM; Start 03/27/18 at 17:30 DOTTIE PAGAN Mar 29, 2018 11:18
[2018-03-29] MEDS ORDERED: POTASSIUM CHLORIDE 100 ML IVPB ONE (11:30)
[2018-03-29 14:54] VITALS: BP 159/93; PULSE 83; RESP 18
[2018-03-29 20:45] VITALS: BP 164/95; PULSE 84; RESP 18
[2018-03-30] MEDS: PANTOPRAZOLE IV 80 MG in SOD CHLORIDE 0.9% 100 ML IV SCH ×2 (01:26→12:04)
[2018-03-30] MEDS: SOD CHLORIDE 0.9% 1,000 ML IV SCH ×3 (01:26→21:11)
[2018-03-30 02:15] VITALS: BP 154/95; PULSE 81; RESP 18
[2018-03-30] MEDS: PIPER-TAZO 3.375 GM IV (PMX) 100 ML IVPB SCH (05:16)
[2018-03-30] MEDS: SUCRALFATE (100 MG/ML) 10ML CUP NGT SCH ×4 (09:20→21:11)
--- NOTE | 2018-03-30 11:09 | PN ---
Date/Time of Note Date/Time of Note DATE: 03/30/18 TIME: 11:04 Assessment/Plan VTE Prophylaxis Risk score (from Ns)>0 risk: 7 SCD applied (from [facility] [place]): Yes Pharmacological prophylaxis: NA/contraindicated Pharm contraindication: low risk/ambulating Lines/Catheters [facility] ([facility] Peripheral IV Urinary Cath still in place: No Assessment/Plan Assessment/Plan 57 yo man admitted with perforated gastric ulcer # Perforated gastric ulcer -Per CT, likely stomach or proximal small bowel. - Went to OR 03/26, found to have prepyloric perforation, sutured and omentum patch placed. - Currently with NG tube with copious output; though decreasing since surgery. - For now continue PPI and IV fluids as well as Carafate - Currently on IV zosyn also - Today clamp NG tube, start clear liquids; if tolerated will D/C NG tube. # Melena -this was noted on admission, very likely secondary to above perforated viscus. None presently. -For now continue as mentioned above continue Carafate and Protonix # ROSE - Resolved Result Diagram: 03/30/18 0455 03/30/18 0455 Subjective 24 Hr Interval Summary Free Text/Dictation No acute overnight events. 5 cc drainage from NG tube total. NG tube clamped this morning for carafate. Patient reports feeling well, no abdominal pain, no nausea. Had small liquid bowel movement last night, passing gas. Exam/Review of Systems Exam Vitals Vital Signs Date Temp Pulse Resp B/P (MAP) Pulse Ox O2 O2 Flow FiO2 Time Delivery Rate 03/30/18 98.6 81 18 154/95 96 Room Air 02:15 (114) 03/27/18 2.0 04:33 03/26/18 30 16:55 Intake and Output 03/29/18 03/29/18 03/30/18 1515:00 23:00 07:00 IntakeIntake Total 850 ml 772 ml 1268 ml OutputOutput Total 850 ml 1100 ml BalanceBalance 850 ml -78 ml 168 ml Exam General: Lying in bed, alert, NG tube in place clamped Head: Normocephalic atraumatic Eyes: EOMI, pupils reactive to light Neck: Supple, nontender, midline Respiratory: Clear to auscultation bilaterally Cardiovascular: regular rate, no obvious murmurs Gastrointestinal: Nondistended, soft, surgical incisions covered in bandage. Nontender to light palpation. Medications Medication Current Medications Pantoprazole 80 mg/Sodium Chloride 100 ml @ 10 mls/hr Q10H IV Last administered on 03/30/18 01:26; Admin Dose 10 MLS/HR; Start 03/25/18 at 21:15 Sodium Chloride 1,000 ml @ 100 mls/hr Q10H IV Last administered on 03/30/18 10:32; Admin Dose 100 MLS/HR; Start 03/25/18 at 19:56 IV Flush (NS 3 ml) 3 ml PER PROTOCOL IV ; Start 03/25/18 at 20:00 Morphine Sulfate (morphine) 2 mg Q4H PRN IV .PAIN 7-10 Last administered on 03/26/18 09:53; Admin Dose 2 MG; Start 03/25/18 at 20:00 Piperacillin Sod/ Tazobactam Sod 100 ml @ 200 mls/hr Q6 IVPB Last administered on 03/30/18 05:16; Admin Dose 200 MLS/HR; Start 03/26/18 at 00:00 Ondansetron HCl (Zofran Inj) 4 mg Q6H PRN IV NAUSEA AND/OR VOMITING; Start 03/25/18 at 23:00 Hydromorphone HCl (Dilaudid) 0.5 mg Q4H PRN IV BREAKTHROUGH PAIN Last administered on 03/26/18 10:58; Admin Dose 0.5 MG; Start 03/25/18 at 23:00 Diphenhydramine HCl (Benadryl) 25 mg Q6H PRN IV PRURITUS; Start 03/25/18 at 23:00 Sucralfate (Carafate Susp) 1 gm QID NGT Last administered on 03/30/18 09:20; Admin Dose 1 GM; Start 03/27/18 at 17:30 ION TOBIAS MD Mar 30, 2018 11:09
[2018-03-30 17:44] VITALS: BP 119/66; PULSE 114; PULSE 117; RESP 18
[2018-03-30] MEDS: PANTOPRAZOLE 40 MG INJ IV SCH (17:59)
[2018-03-30 20:13] VITALS: BP 149/96; PULSE 83; RESP 18
[2018-03-31] VITALS (7 sets, daily range): BP systolic 123–167; BP diastolic 73–96; PULSE 81–94; RESP 18
[2018-03-31] MEDS: PANTOPRAZOLE 40 MG INJ IV SCH ×2 (05:21→18:27)
[2018-03-31] MEDS: SOD CHLORIDE 0.9% 1,000 ML IV SCH ×2 (06:20→18:10)
[2018-03-31] MEDS: SUCRALFATE (100 MG/ML) 10ML CUP NGT SCH ×4 (10:00→21:11)
--- NOTE | 2018-03-31 10:37 | PN ---
Date/Time of Note Date/Time of Note DATE: 03/31/18 TIME: 10:33 Assessment/Plan VTE Prophylaxis Risk score (from Ns)>0 risk: 2 SCD applied (from Ns): Yes Pharmacological prophylaxis: NA/contraindicated Pharm contraindication: low risk/ambulating Lines/Catheters [facility] [place] Urinary Cath still in place: No Assessment/Plan Assessment/Plan 57 yo man admitted with perforated gastric ulcer # Perforated gastric ulcer -Per CT, likely stomach or proximal small bowel. - Went to OR 03/26, found to have prepyloric perforation, sutured and omentum patch placed. - For now continue PPI and IV fluids as well as Carafate - s/p IV zosyn - NG tube out. Advance diet. # Melena -this was noted on admission, very likely secondary to above perforated viscus. None presently. -For now continue as mentioned above continue Carafate and Protonix # ROSE - Resolved Result Diagram: 03/31/18 0444 03/31/18 0444 Results 24hrs Laboratory Tests Test 03/31/18 04:44 White Blood Count 13.0 H Red Blood Count 4.34 L Hemoglobin 13.3 L Hematocrit 38.2 L Mean Corpuscular Volume 88.0 Mean Corpuscular Hemoglobin 30.6 Mean Corpuscular Hemoglobin Concent 34.8 Red Cell Distribution Width 12.3 Platelet Count 365 Mean Platelet Volume 9.8 Immature Granulocytes % 1.200 H Neutrophils % 78.5 H Lymphocytes % 8.9 L Monocytes % 9.1 Eosinophils % 2.1 Basophils % 0.2 Nucleated Red Blood Cells % 0.0 Immature Granulocytes # 0.150 H Neutrophils # 10.2 H Lymphocytes # 1.2 Monocytes # 1.2 H Eosinophils # 0.3 Basophils # 0.0 Nucleated Red Blood Cells # 0.0 Sodium Level 139 Potassium Level 3.3 L Chloride Level 100 Carbon Dioxide Level 26 Anion Gap 13 Blood Urea Nitrogen 11 Creatinine 0.75 Est Glomerular Filtrat Rate mL/min > 60 Glucose Level 104 Calcium Level 8.3 L Subjective 24 Hr Interval Summary Free Text/Dictation No acute overnight events. Tolerating clear liquids with no abd pain, nausea, vomiting. NGt out. Ambulating, breathing room air. Exam/Review of Systems Exam Vitals Vital Signs Date Temp Pulse Resp B/P (MAP) Pulse Ox O2 O2 Flow FiO2 Time Delivery Rate 2/19/19 99.1 84 18 165/94 99 07:49 (117) 03/30/18 Room Air 17:44 Intake and Output 03/30/18 03/30/18 03/31/18 1515:00 23:00 07:00 IntakeIntake Total 790 ml 1050 ml 1000 ml OutputOutput Total 500 ml 700 ml 600 ml BalanceBalance 290 ml 350 ml 400 ml Exam General: Lying in bed, alert, awake Head: Normocephalic atraumatic Eyes: EOMI, pupils reactive to light Neck: Supple, nontender, midline Respiratory: Clear to auscultation bilaterally Cardiovascular: regular rate, no obvious murmurs Gastrointestinal: Nondistended, soft, surgical incisions covered in bandage. Epigastric tenderness to mod palpation. Nontender otherwise. Results Results 24hrs Laboratory Tests Test 03/31/18 04:44 White Blood Count 13.0 H Red Blood Count 4.34 L Hemoglobin 13.3 L Hematocrit 38.2 L Mean Corpuscular Volume 88.0 Mean Corpuscular Hemoglobin 30.6 Mean Corpuscular Hemoglobin Concent 34.8 Red Cell Distribution Width 12.3 Platelet Count 365 Mean Platelet Volume 9.8 Immature Granulocytes % 1.200 H Neutrophils % 78.5 H Lymphocytes % 8.9 L Monocytes % 9.1 Eosinophils % 2.1 Basophils % 0.2 Nucleated Red Blood Cells % 0.0 Immature Granulocytes # 0.150 H Neutrophils # 10.2 H Lymphocytes # 1.2 Monocytes # 1.2 H Eosinophils # 0.3 Basophils # 0.0 Nucleated Red Blood Cells # 0.0 Sodium Level 139 Potassium Level 3.3 L Chloride Level 100 Carbon Dioxide Level 26 Anion Gap 13 Blood Urea Nitrogen 11 Creatinine 0.75 Est Glomerular Filtrat Rate mL/min > 60 Glucose Level 104 Calcium Level 8.3 L Medications Medication Current Medications Sodium Chloride 1,000 ml @ 100 mls/hr Q10H IV Last administered on 03/31/18at 06:20; Admin Dose 100 MLS/HR; Start 03/25/18 at 19:56 IV Flush (NS 3 ml) 3 ml PER PROTOCOL IV ; Start 03/25/18 at 20:00 Morphine Sulfate (morphine) 2 mg Q4H PRN IV .PAIN 7-10 Last administered on 03/26/18at 09:53; Admin Dose 2 MG; Start 03/25/18 at 20:00 Ondansetron HCl (Zofran Inj) 4 mg Q6H PRN IV NAUSEA AND/OR VOMITING; Start 03/25/18 at 23:00 Hydromorphone HCl (Dilaudid) 0.5 mg Q4H PRN IV BREAKTHROUGH PAIN Last administered on 03/26/18at 10:58; Admin Dose 0.5 MG; Start 03/25/18 at 23:00 Diphenhydramine HCl (Benadryl) 25 mg Q6H PRN IV PRURITUS; Start 03/25/18 at 23:00 Sucralfate (Carafate Susp) 1 gm QID NGT Last administered on 03/31/18at 10:00; Admin Dose 1 GM; Start 03/27/18 at 17:30 Pantoprazole (Protonix Iv) 40 mg BID@06,18 IV Last administered on 03/31/18at 05:21; Admin Dose 40 MG; Start 03/30/18 at 18:00 ION TOBIAS MD Mar 31, 2018 10:37
[2018-03-31] MEDS: LISINOPRIL 10 MG TAB PO SCH (15:57)
[2018-03-31] MEDS ORDERED: morphine LIQ (10 MG/5 ML) CUP PO PRN (22:00)
[2018-04-01 01:42] VITALS: BP 154/93; PULSE 85; RESP 18
[2018-04-01] MEDS: SOD CHLORIDE 0.9% 1,000 ML IV SCH ×3 (03:19→18:15)
[2018-04-01] MEDS: PANTOPRAZOLE 40 MG INJ IV SCH ×2 (06:14→18:09)
[2018-04-01 07:44] VITALS: BP 151/91; PULSE 80; RESP 18
[2018-04-01] MEDS: SUCRALFATE (100 MG/ML) 10ML CUP NGT SCH ×4 (09:27→22:08)
[2018-04-01] MEDS: LISINOPRIL 10 MG TAB PO SCH (09:29)
--- NOTE | 2018-04-01 10:22 | PDOCDIS ---
Discharge Instructions DIAGNOSIS Discharge Diagnosis Perforated gastric ulcer Essential hypertension CONDITION [id number] Patient Condition: [id number] Good HOME CARE INSTRUCTIONS: [id number] Diet Instructions: [id number] Regular [id number] Special Diet: [id number] No spicy foods, no excess vinegar or other acid. ACTIVITY: [id number] Activity Restrictions: [id number] No Restrictions FOLLOW UP/APPOINTMENTS Follow-up Plan 1. Take all medications as prescribed. Take pantoprazole and sucralfate for at least 6 weeks to protect your stomach ulcer. 2. Your blood pressure is high which increases your risk of heart attack and stroke. Continue taking lisinopril to keep your blood pressure controlled. 3. Make an appointment with a primary care doctor in 1-2 weeks for a blood pressure check. 4. Make an appointment with your surgeon Dr. Koo in 1-2 weeks for your ulcer. 5. For abdomen pain take tylenol (acetaminophen). 6. Avoid ibuprofen, advil, motrin, and other medications called NSAIDs. These will worsen your ulcer. 1. [place] todos los medicamentos segn lo prescrito. [place] pantoprazole y sucralfate ferdinand al menos 6 semanas para proteger isidro lcera de estmago. 2. Isidro presin arterial es harriet, lo que aumenta isidro riesgo de ataque cardaco y accidente cerebrovascular. Contine tomando lisinopril para mantener isidro presin arterial controlada. 3. Bhavna bernardo leo con un mdico de atencin primaria en 1-2 semanas para bernardo revisin de la presin arterial. 4. Bhavna bernardo leo con isidro cirujano Dr. Koo en 1-2 semanas para isidro lcera. 5. Para el dolor abdominal, tome tylenol (acetaminophen). 6. Evite el ibuprofeno, el advil, el motrin y otros medicamentos llamados NSAIDs. Estos empeorarn tu lcera. ION TOBIAS MD Apr 01, 2018 10:22
[2018-04-01] MEDS ORDERED: CARAS PO (10:24)
[2018-04-01] MEDS ORDERED: LISI10TA2 PO (10:24)
[2018-04-01] MEDS ORDERED: PANT40TA4 PO (10:24)
[2018-04-01 14:05] VITALS: BP 139/75; PULSE 91; RESP 19
--- NOTE | 2018-04-01 14:21 | PN ---
Date/Time of Note Date/Time of Note DATE: 04/01/18 TIME: 14:19 Assessment/Plan VTE Prophylaxis Risk score (from Ns)>0 risk: 3 SCD applied (from Ns): Yes Pharmacological prophylaxis: NA/contraindicated Pharm contraindication: low risk/ambulating Lines/Catheters [facility] Mid [facility] Urinary Cath still in place: No Assessment/Plan Assessment/Plan 57 yo man admitted with perforated gastric ulcer # Perforated gastric ulcer -Per CT, likely stomach or proximal small bowel. - Went to OR 03/26, found to have prepyloric perforation, sutured and omentum patch placed. - For now continue PPI and IV fluids as well as Carafate - s/p IV zosyn - NG tube out. Advance to regular diet today. # Melena -this was noted on admission, very likely secondary to above perforated viscus. None presently. -For now continue as mentioned above continue Carafate and Protonix # ROSE - Resolved Dispo: anticipate discharge home within 24 hours. Result Diagram: 03/31/1844303/31/18443 Subjective 24 Hr Interval Summary Free Text/Dictation Patient resting comfortably. Tolerating full liquid diet well. Walking up stairs with PT today. Exam/Review of Systems Exam Vitals Vital Signs Date Temp Pulse Resp B/P (MAP) Pulse Ox O2 O2 Flow FiO2 Time Delivery Rate 04/01/18 98.3 91 19 139/75 96 Room Air 14:05 (96) Intake and Output 03/31/18 03/31/18 04/01/18 1515:00 23:00 07:00 IntakeIntake Total 1050 ml 1640 ml OutputOutput Total 200 ml 680 ml 1150 ml BalanceBalance -200 ml 370 ml 490 ml Exam General: Lying in bed, alert, awake Head: Normocephalic atraumatic Eyes: EOMI, pupils reactive to light Neck: Supple, nontender, midline Respiratory: Clear to auscultation bilaterally Cardiovascular: regular rate, no obvious murmurs Gastrointestinal: Nondistended, soft, surgical incisions covered in bandage. Epigastric tenderness to mod palpation. Nontender otherwise. Medications Medication Current Medications Sodium Chloride 1,000 ml @ 100 mls/hr Q10H IV Last administered on 04/01/18at 03:19; Admin Dose 100 MLS/HR; Start 03/25/18 at 19:56 IV Flush (NS 3 ml) 3 ml PER PROTOCOL IV ; Start 03/25/18 at 20:00 Ondansetron HCl (Zofran Inj) 4 mg Q6H PRN IV NAUSEA AND/OR VOMITING; Start 03/25/18 at 23:00 Hydromorphone HCl (Dilaudid) 0.5 mg Q4H PRN IV BREAKTHROUGH PAIN Last administered on 03/26/18at 10:58; Admin Dose 0.5 MG; Start 03/25/18 at 23:00 Diphenhydramine HCl (Benadryl) 25 mg Q6H PRN IV PRURITUS; Start 03/25/18 at 23:00 Sucralfate (Carafate Susp) 1 gm QID NGT Last administered on 04/01/18at 12:49; Admin Dose 1 GM; Start 03/27/18 at 17:30 Pantoprazole (Protonix Iv) 40 mg BID@06,18 IV Last administered on 04/01/18at 06:14; Admin Dose 40 MG; Start 03/30/18 at 18:00 Lisinopril (Zestril) 10 mg DAILY PO Last administered on 04/01/18at 09:29; Admin Dose 10 MG; Start 03/31/18 at 14:30 Morphine Sulfate (morphine) 6 mg Q4H PRN PO SEVERE PAIN LEVEL 7-10; Start 03/31/18 at 22:00 ION TOBIAS MD Apr 01, 2018 14:21
[2018-04-01 19:35] VITALS: BP 142/83; PULSE 87; RESP 18
[2018-04-02 02:30] VITALS: BP 137/81; PULSE 85; RESP 18
[2018-04-02] MEDS: SOD CHLORIDE 0.9% 1,000 ML IV SCH (03:28)
[2018-04-02] MEDS: PANTOPRAZOLE 40 MG INJ IV SCH (05:26)
[2018-04-02 07:27] VITALS: BP 148/88; PULSE 80; RESP 18
[2018-04-02] MEDS: LISINOPRIL 10 MG TAB PO SCH (09:19)
[2018-04-02] MEDS: SUCRALFATE (100 MG/ML) 10ML CUP NGT SCH ×2 (09:19→12:56)
[2018-04-02 14:32] VITALS: BP 135/85; PULSE 89; RESP 20
--- NOTE | 2018-04-02 15:57 | DS ---
Date/Time of Note Date/Time of Note DATE: 04/02/18 TIME: 15:54 Discharge Summary Admission/Discharge Info Admit Date/Time Mar 25, 2018 at 19:08 Discharge Date/Time Apr 02, 2018 Discharge Diagnosis Perforated gastric ulcer Essential hypertension Patient Condition: Good Consults Dr. Koo, general surgery Procedures Laparoscopic repair of perforated peptic ulcer Hx of Present Illness Patient is a male with no significant past medical history due to not following up with a physician in a very long time who presents to [facility] for abdominal pain. Patient states that he had on and off abdominal pain for quite some time however the most severe abdominal pain has been going on for the past 2 days in the epigastric region and he is also complaining of black stool for the past day. Patient currently has abdominal pain but has subsided with pain medication. Patient now has an NG tube but has also been complaining of nausea and vomiting on and off but with no hematemesis. Patient denies chest pain, shortness of breath, headache, leg pain, chest pain Hospital Course He was taken to surgery by Dr. Koo, found to have copious free fluid in the abdomen along with a perforated pre-pyloric ulcer. The perforation with closed and secured with an omentum patch. Postoperative course was unremarkable. He was maintained on carafate and PPI. He had copious NG tube output for first three days, then he was started on diet and advanced to regular. He was found to have essential hypertension with BPs consistently >150/90s on a daily basis. He was started on lisinopril. At time of discharge he was ambulating without assistance, tolerating regular diet, breathing comfortably room air. Home Meds Active Scripts Pantoprazole* (Pantoprazole*) 40 Mg Tablet.dr, 40 MG PO BID, #80 TAB Prov:ION TOBIAS MD 04/01/18 Sucralfate* (Carafate*) 1 Gm/10 Ml Susp, 1 GM PO QID, #1 BOTTLE Prov:ION TOBIAS MD 04/01/18 Lisinopril* (Lisinopril*) 10 Mg Tablet, 10 MG PO DAILY, #60 TAB Prov:ION TOBIAS MD 04/01/18 Follow-up Plan 1. Take all medications as prescribed. Take pantoprazole and sucralfate for at least 6 weeks to protect your stomach ulcer. 2. Your blood pressure is high which increases your risk of heart attack and stroke. Continue taking lisinopril to keep your blood pressure controlled. 3. Make an appointment with a primary care doctor in 1-2 weeks for a blood pressure check. 4. Make an appointment with your surgeon Dr. Koo in 1-2 weeks for your ulcer. 5. For abdomen pain take tylenol (acetaminophen). 6. Avoid ibuprofen, advil, motrin, and other medications called NSAIDs. These will worsen your ulcer. 1. [place] todos los medicamentos segn lo prescrito. [place] pantoprazole y suc ralfate ferdinand al menos 6 semanas para proteger isidro lcera de estmago. 2. Isidro presin arterial es harriet, lo que aumenta isidro riesgo de ataque cardaco y accidente cerebrovascular. Contine tomando lisinopril para mantener isidro presin arterial controlada. 3. Bhavna bernardo leo con un mdico de atencin primaria en 1-2 semanas para bernardo revisin de la presin arterial. 4. Bhavna bernardo leo con isidro cirujano Dr. Koo en 1-2 semanas para isidro lcera. 5. Para el dolor abdominal, tome tylenol (acetaminophen). 6. Evite el ibuprofeno, el advil, el motrin y otros medicamentos llamados NSAIDs. Estos empeorarn tu lcera. Primary Care Provider Care Physician No Primary Time spent on discharge: > 30 minutes ION TOBIAS MD Apr 02, 2018 15:57
== END 2018-04-02 16:16 | disposition home or self-care (01) | DRG 329 ==
LOC: E/R 14:11 → ICU 19:08 → MS1 03-27 12:40
PROVIDERS: ADMIT Internal Medicine; ATTEND Internal Medicine
PROC: 0DU947Z Supplement Duodenum with Autologous Tissue Substitute, Percutaneous Endoscopic Approach (ICD-10-PCS; principal; 2018-03-25 20:00)
DX: K25.5 Chronic or unspecified gastric ulcer with perforation (principal); K65.8 Other peritonitis; N17.9 Acute kidney failure, unspecified; K66.8 Other specified disorders of peritoneum; K92.1 Melena; I12.9 Hypertensive chronic kidney disease with stage 1 through stage 4 chronic kidney disease, or unspecified chronic kidney disease; N18.9 Chronic kidney disease, unspecified
CPT/HCPCS: 36415; 36600; 71045; 74176; 80048; 80053; 80061; 81001; 82803; 83036; 83605; 83690; 83735; 84100; 84443; 84484; 85025; 87040; 87070; 87081; 87086; 87102; 87116; 93005; 93306; 94002; 94770; 96374; 96375; 97110; 97116; 97161; 97530; C9113; J0131; J0690; J1170; J2250; J2270; J2370; J2405; J2543; J2795; J3010; J3475; J3480; J7030